=== PATIENT | male | born 1940 | race Caucasian/White ===

== ENCOUNTER 2020-03-06 12:33 | Emergency (ER) | payer MEDICARE, SELFPAY ==
[2020-03-06 12:50] VITALS: BP 120/83; PULSE 73; RESP 20; TEMP 36.6; O2SAT 100
--- NOTE | 2020-03-06 12:52 | ED.WOUNDLAC ---
HPI - Wound/Laceration General Chief Complaint: Wound/Laceration Stated Complaint: Laceration forehead Time Seen by Provider: 03/06/20 12:40 Source: patient Mode of arrival: ambulatory Limitations: no limitations History of Present Illness HPI narrative: Emil Gonzalez is a 79 yo male with a PMH of aortic stenosis, ICD placement, a fib, BPH, hypertension, high cholesterol, who comes to express care with a elliptical laceration 1.5 cm in length that occurred 2 to 3 days ago(either Tuesday or Tuesday), when moving a plastic trash can and got hit in the forehead by the trash can lid. The elliptical area i has old blood still in place. Her call doctor who told him to come to express care patient is concerned about infection are scarring Patient is on both Coumadin and aspirin Related Data Home Medications Medication Instructions Recorded Confirmed aspirin 81 mg tablet,delayed 81 mg PO DAILY 07/13/19 03/06/20 release atorvastatin 80 mg tablet 80 mg PO DAILY 07/13/19 03/06/20 bumetanide 1 mg tablet 2 mg PO DAILY 07/13/19 03/06/20 multivitamin 1 tablet PO DAILY 07/13/19 03/06/20 tamsulosin 0.4 mg capsule 0.4 mg PO DAILY 07/13/19 03/06/20 warfarin 3 mg tablet 3 mg PO DAILY 07/13/19 03/06/20 carvedilol 12.5 mg tablet 25 mg PO BID tablet 01/21/20 03/06/20 Allergies Allergy/AdvReac Type Severity Reaction Status Date / Time No Known Allergies Allergy Verified 01/21/20 12:58 Review of Systems Review of Systems: Narrative: CONSTITUTIONAL: Denies fever, chills, sweats. EYES: Denies visual changes, redness, discharge. ENT: Denies rhinorrhea, congestion, sore throat, otalgia. CARDIOVASCULAR: Denies chest pain, palpitations, edema. RESPIRATORY: Denies dyspnea, wheezing, cough GASTROINTESTINAL: Denies abdominal pain, nausea, vomiting, diarrhea. GENITOURINARY: Denies dysuria, hematuria, abnormal discharge SKIN: Denies rash or itching. Elliptical superficial laceration to right side upper forehead, occurred 2 to 3 days ago NEUROLOGIC: Denies numbness, or focal weakness. PSYCHIATRIC: Denies anxiety or depression. [facility] Past Medical History Medical History Actinic keratoses Artificial pacemaker Atrial fibrillation and flutter CAD in [place] artery Carcinoma Cardiac defibrillator in place Hammer toes of both feet History of carcinoma in situ of skin Hyperlipidemia Hypertension Pes cavus Plantar fasciitis Squamous cell carcinoma in situ Wears glasses reading Surgical History Surgical History Aortic valve replaced Family History Family History Father Family history of cardiovascular disease Other Malignant neoplasm Social History Social History Smoking status: Former smoker Second hand tobacco smoke exposure: No Alcohol intake: never Substance use: never Substance use type: does not use Gender identity (if verbalized by the patient): Male Comments At time of signature, I agree with nursing past medical, surgical, social and family history. There is no relevant family history pertinent to the presenting complaint. Exam Narrative: Exam Narrative: GENERAL: This is a well-nourished, well-developed patient, in mild distress. HEAD: normocephalic, atraumatic. EYES: PERRL. Sclera clear/white. Vision is grossly intact. EARS: External ears normal, auditory canals clear and without drainage, TMs normal without perforation. Hearing grossly intact. NOSE: External nose normal without nasal discharge, nares without redness, no rhinorrhea. THROAT: Mucous membranes moist, posterior pharynx NECK: Neck supple, non-tender CARDIOVASCULAR: Regular rate and rhythm without murmurs, gallops, or rubs. RESPIRATORY: Clear to auscultation. Breath sounds equal bilaterally. No wheezes, rales, or rhonchi.
[2020-03-06] MEDS: TETANUS,DIPHTHERIA,AC PERTUSSIS ADULT (0.5 ML) BOOSTRIX IM (13:06)
== END 2020-03-06 13:14 | disposition home or self-care (01) ==
PROVIDERS: Emergency Provider Nurse Practitioner; PCP Family Medicine
DX: S01.01XA Laceration without foreign body of scalp, initial encounter (principal); W22.8XXA Striking against or struck by other objects, initial encounter; Z23 Encounter for immunization; Z87.891 Personal history of nicotine dependence; Z95.0 Presence of cardiac pacemaker; I25.10 Atherosclerotic heart disease of native coronary artery without angina pectoris; E78.5 Hyperlipidemia, unspecified; I10 Essential (primary) hypertension; Z95.2 Presence of prosthetic heart valve; I48.91 Unspecified atrial fibrillation
CPT/HCPCS: 90471; 90715; 99213; G0463

== ENCOUNTER 2020-05-07 08:52 | Inpatient (IN) | payer MEDICARE, SELFPAY ==
[2020-05-07] VITALS (20 sets, daily range): BP systolic 93–102; BP diastolic 61–69; PULSE 69–100; RESP 13–20; TEMP 36.3–36.6; O2SAT 78–100
--- NOTE | ~2020-05-07 | US_ITS ---
EXAMINATION: US renal BI DATE: 05/07/2020 16:04 INDICATION: Worsening renal failure TECHNIQUE: Multiple ultrasound grayscale images of the kidneys were obtained. COMPARISON: CT abdomen and pelvis dated 05/07/2020 FINDINGS: The right kidney measures 8.9 x 4.1 x 4.0 cm. The left kidney measures 10.0 x 5.3 x 4.7 cm. The kidne ys demonstrate normal echogenicity. There is no hydronephrosis in either kidney. No stones identifie d. There is a peripheral nodular filling defect at the base of the bladder, unclear whether arising f rom the bladder wall or from the deeper prostate. IMPRESSION: 1. Normal kidneys without hydronephrosis. 2. Nodular filling defect along the base of the bladder which could be related to benign prostatomega ly or malignancy either of bladder or prostate origin. Correlate with urinalysis and could consider c ystoscopy for further evaluation. Reviewed, dictated and finalized at location . [employer] INSTRUCTOR IN ECONOMICS IMPRESSION: 1. Normal kidneys without hydronephrosis. 2. Nodular filling defect along the base of the bladder which could be related to benign prostatomegaly or malignancy either of bladder or prostate origin. Co rrelate with urinalysis and could consider cystoscopy for further evaluation.
--- NOTE | ~2020-05-07 | CT_ITS ---
EXAMINATION: CT brain wo con DATE: 05/07/2020 10:17 INDICATION: Altered mental status. TECHNIQUE: Computed tomography (CT) of the head was performed without intravenous contrast. The mA wa s adjusted according to patient size. Iterative reconstruction technique was employed. The dose-lengt h product was 681.00 mGy-cm. COMPARISON: Head CT 09/25/18 FINDINGS: There is old infarct in right cerebellum. There is an old infarct in the right occipital lo be. There are old infarcts in the bilateral basal ganglia. There are scattered areas of low attenuati on in the cerebral white matter, which is within normal limits for the patient's age. There is no int racranial hemorrhage, acute infarction, or abnormal intracranial mass lesion. The ventricles are norm al in size. There is mild mucosal thickening in the paranasal sinuses. The orbits are normal. The mas toid air cells are normal. IMPRESSION: 1. Old infarcts in the bilateral basal ganglia, right occipital lobe, and right cerebellum. Reviewed, dictated and finalized at location A. ENT ACCESS
--- NOTE | ~2020-05-07 | XR_ITS ---
EXAMINATION: XR chest 2V EXAM DATE: 05/07/2020 10:27 INDICATION: Altered mental status. Cardiomegaly. Shortness of breath. TECHNIQUE: Frontal and lateral projections of the chest obtained and reviewed. Comparison is made to prior examination from 09/25/2018. FINDINGS: There is a dual lead pacemaker/AICD seen with leads projecting over the expected locations of the right atrial appendage and right ventricle. Sternotomy wires are present without findings to suggest sternal dehiscence. Cardiac valve replacement. There is cardiomegaly and pulmonary vascular congestion. No confluent consolidation, pneumothorax or pleural effusion suspected. Degenerative IMPRESSION: 1. Cardiomegaly, pulmonary vascular congestion. Reviewed, dictated and finalized at location B. OTIC ASSISTANT
--- NOTE | ~2020-05-07 | CT_ITS ---
EXAMINATION: CT abdomen pelvis wo con EXAM DATE: 05/07/2020 10:16 INDICATION: Transaminitis. Altered mental status. TECHNIQUE: Spiral CT of the abdomen and pelvis was performed without contrast. Axial, coronal and s agittal images were reviewed. The dose-length product (DLP) for this examination was 644.48 mGy-cm. The exposure was tailored according to patient size (auto mA exposure control), and iterative recons truction (ASIR) was used as additional dose reduction technique. There is no prior study for compari son. FINDINGS: Small amount of perihepatic ascites. Gallbladder is contracted with some pericystic ascites , nonspecific. No calcified cholelithiasis. Spleen, adrenal glands, pancreas are unremarkable. [place] bilateral nephrolithiasis. The prostate is unremarkable. The bladder is unremarkable. There i s no retroperitoneal or pelvic lymphadenopathy. There is moderate scattered arteriosclerotic diseas e. Right inguinal canal surgical changes. The appendix is normal. The stomach and small bowel are unremarkable. There is expected amount of c olonic stool. No free intraperitoneal gas. There is cardiomegaly and bilateral gynecomastia. The lung bases are unremarkable. There are no osteoblastic or osteolytic lesions identified. Small umbi lical fat-containing hernia. IMPRESSION: 1. Small amount of ascites including in the gallbladder fossa which is nonspecific. Contracted gallb ladder without calcified cholelithiasis. 2. Punctate bilateral nephrolithiasis. 3. Mild colonic diverticulosis. 4. Small umbilical hernia. 5. Cardiomegaly. Reviewed, dictated and finalized at location B. ITUTIONAL NUTRITION CONSULTANT IMPRESSION: 1. Small amount of ascites including in the gallbladder fossa which is nonspec ific. Contracted gallbladder without calcified cholelithiasis. 2. Punctate bilateral nephrolithiasis. 3. Mild colonic diverticulosis. 4. Small umbilical hernia. 5. Cardiomegaly.
--- NOTE | ~2020-05-07 | XR_ITS ---
EXAMINATION: XR chest 1V portable DATE: 05/09/2020 15:26 INDICATION: Shortness of breath. TECHNIQUE: A single frontal view of the chest was obtained. COMPARISON: Chest 2 views 05/07/2020, CT abdomen and pelvis 05/07/2020 FINDINGS: The patient is rotated to his left. There are airspace opacities in left lower lung zone. N o pleural effusion or pneumothorax. Cardiomegaly is noted. There are changes of heart valve replaceme nt and likely coronary artery bypass grafting. There is a left chest wall pacer with leads in the rig ht atrium and right ventricle. IMPRESSION: 1. Worsened airspace opacities in left lower lung zone, consistent with atelectasis or less likely pn eumonia. 2. Cardiomegaly. Reviewed, dictated and finalized at location A. BUILDER IMPRESSION: 1. Worsened airspace opacities in left lower lung zone, consistent with atelect asis or less likely pneumonia. 2. Cardiomegaly.
--- NOTE | ~2020-05-07 | US_ITS ---
EXAMINATION: US right upper quadrant EXAM DATE: 05/07/2020 12:50 INDICATION: Transaminitis. TECHNIQUE: Multiple grayscale and Doppler images of the abdomen right upper quadrant were obtained (b y a technologist who performed the scan) and subsequently reviewed. Comparison is made to prior exami nation from 03/24/2011. FINDINGS: The pancreatic head and body are normal in appearance. The pancreatic tail is not visualized. The l iver has normal echogenicity and contour. There are no focal liver lesions identified. There is no evidence of intrahepatic biliary duct dilation. There is abnormal pulsatile bidirectional portal venous flow indicating probability of portal hyperte nsion. No evidence of portal venous thrombosis. No right-sided hydronephrosis. Common bile duct measures 3 mm, which is normal. The gallbladder is mildly distended, wall is moderat henry thickened at about 6 mm. No sonographic evidence of pericholecystic fluid. There is no cholelit hiasis. Technologist performing exam reports patient did not demonstrate sonographic Lugo's sign. Please note that this sign is less reliable in patients who have received pain medication. IMPRESSION: 1. Bidirectional portal venous flow suggesting portal hypertension and therefore underlying cirrhosi s. 2. Nonspecific gallbladder wall thickening, only mildly distended gallbladder without stones. Reviewed, dictated and finalized at location B. H SERVICES LIBRARIAN IMPRESSION: 1. Bidirectional portal venous flow suggesting portal hypertension and therefo re underlying cirrhosis. 2. Nonspecific gallbladder wall thickening, only mildly distended gallbladder without stones.
--- NOTE | 2020-05-07 09:00 | ECG_ITS ---
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
--- NOTE | 2020-05-07 09:28 | ED.AMS ---
HPI - Altered Mental Status General Chief Complaint: Altered Mental Status Stated Complaint: altered mental status Time Seen by Provider: 05/07/20 08:54 History of Present Illness HPI narrative: Patient is a 79-year-old male who presents the ER with altered mental status. 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 Patient missed his appointment yesterday and they contacted come in today. While he was being evaluated in the office he continued to fall asleep and not make much sense. Patient reports that he just feels out of it. In the ER he is demonstrating the same behavior. He is poorly interacting likely due to his lethargy. He begins to speak with clear sentences and then slowly begins to mumble and fall asleep. He does not open his eyes. He has no additional complaints other than just feeling out of it. Related Data Home Medications Medication Instructions Recorded Confirmed aspirin 81 mg tablet,delayed 81 mg PO DAILY 07/13/19 03/06/20 release atorvastatin 80 mg tablet 80 mg PO DAILY 07/13/19 03/06/20 bumetanide 1 mg tablet 2 mg PO DAILY 07/13/19 03/06/20 multivitamin 1 tablet PO DAILY 07/13/19 03/06/20 tamsulosin 0.4 mg capsule 0.4 mg PO DAILY 07/13/19 03/06/20 warfarin 3 mg tablet 3 mg PO DAILY 07/13/19 03/06/20 carvedilol 25 mg BID 05/07/20 spironolactone 25 mg DAILY 05/07/20 Allergies Allergy/AdvReac Type Severity Reaction Status Date / Time No Known Allergies Allergy Verified 05/07/20 16:09 Review of Systems Review of Systems: ROS unobtainable: Yes unobtainable due to medical condition [facility] Past Medical History Medical History (Updated 05/07/20 @ 16:11 by Floyd Bruce MD) Actinic keratoses Artificial pacemaker Atrial fibrillation and flutter BPH (benign prostatic hyperplasia) CAD in [place] artery Carcinoma Cardiac defibrillator in place CHF (congestive heart failure), NYHA class I CRF (chronic renal failure) stage III CVA (cerebral vascular accident) Old infarcts in the bilateral basal ganglia, right occipital lobe, 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 History of carcinoma in situ of skin Hyperlipidemia Hypertension Pes cavus Plantar fasciitis Skin cancer multiple areas removed from his face Squamous cell carcinoma in situ Wears glasses reading Surgical History Surgical History (Updated 05/07/20 @ 14:03 by Gertrude Joshua NP) AICD (automatic cardioverter/defibrillator) present Aortic valve replaced mechanical History of removal of pigmented skin lesion S/P CABG (coronary artery bypass graft) Family History Family History Father Family history of cardiovascular disease Mother Cancer Social History Social History (Updated 05/07/20 @ 14:08 by Gertrude Joshua NP) Social History: 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 He has 1 son who was Emil LOERA the 3rd. His son is his durable power pipeline inspector for healthcare. The patient is a full code. He is . Patient denies any tobacco, alcohol, marijuana or illicit drugs. He lives alone. Smoking status: Never smoker Second hand tobacco smoke exposure: No Alcohol intake: never Substance use: never Substance use type: does not use Living arrangements: alone Occupation/Education: occupation Additional occupation/education comments: [employer] Gender identity (if verbalized by the patient): Male Spiritual care concerns: No Exam Narrative: Exam Narrative: GENERAL: Chronically ill-appearing, well-nourished, and in no acute distress. HEAD: Normocephalic, atraumatic. EYES: PERRLA and EOMI. CHEST: Clear to auscultation. No respiratory distress. HEART: Irregular regular rate and rhythm. Normal peripheral pulses. ABDOMEN: Soft, nontender, nondistended. EXTREMITIES: Normal range of motion. No edema. SKIN: Warm, dry, no rash. NEURO: Alert and oriented x3. Course Course Emergency Course: Informed of r
[2020-05-07] MEDS: SODIUM CHLORIDE 0.9% IV 1,000 ML 999 ML IV CONT ×2 (09:35→11:29)
[2020-05-07 09:37] LABS: Alveolar/Arterial O2 Gradient 26.9 mmHg; Base Excess ABG 1.3 mEq/l (+/-2.0); Device ROOM AIR; Fractional Inspired Oxygen 21 %; HCO3 ABG 24.9 mEq/l (22.0-26.0); Modified Allen's Test Pass; Oxygen Content ABG 16.7 %vol (16.0-22.0); Oxygen Saturation ABG 96.4 % (95.0-100.0); Oxyhemoglobin 94.1 % THb (90.0-100.0); PO2 ABG 79.7 mmHg (80.0-100.0); Site Drawn LEFT RADIAL; Total Hemoglobin 12.6 g/dL (12.0-18.0); pH ABG 7.458 (7.350-7.450)
[2020-05-07 09:47] LABS: INR 3.8; Partial Thromboplastin Time 41.6 SECONDS (22.3-36.8); Prothrombin Time 37.9 Seconds (11.1-14.7)
[2020-05-07 09:48] LABS: Ammonia < 9 umol/L (9-30); Ethanol < 10 mg/dL (<10)
[2020-05-07 09:49] LABS: Alanine Aminotransferase 334 U/L (4-50); Albumin Level 3.4 g/dL (3.5-5.1); Alkaline Phosphatase 109 U/L (38-126); Anion Gap 9 mmol/L (8-16); Aspartate Amino Transferase 348 U/L (17-59); Bilirubin,Total 0.9 mg/dL (0.2-1.3); Blood Urea Nitrogen 72 mg/dL (9-20); Calcium 8.5 mg/dL (8.4-10.2); Carbon Dioxide 29 mmol/L (22-30); Chloride 95 mmol/L (98-107); Estimated CRCL calculation 18 ml/min; Estimated Glomerular Filt Rate 25; Glucose 125 mg/dL (75-110); Potassium 3.6 mmol/L (3.4-5.0); Sodium 133 mmol/L (137-145)
[2020-05-07 10:19] LABS: Add Urine Microscopic? NO; Appearance Urine Clear (Clear); Bilirubin Urine Negative (Negative); Blood Urine Negative (Negative); Color Urine Yellow (Yellow); Glucose Urine UA Negative (Negative); Ketones Urine Negative (Negative); Leukocyte Esterase Ur Negative LEU/UL (Negative); Mucus Urine Rare /lpf; Nitrate Urine Negative (Negative); Protein Urine Negative (Negative); Specific Grav Ur 1.013 (1.001-1.035); Urobilinogen Urine Negative mg/dL (<2.0); WBC Urine 0-3 /hpf
[2020-05-07 10:58] LABS: Basophils Percent Auto 0.2 % (0.2-1.2); Eosinophils Percent Auto 0.3 % (0-4.4); Hematocrit 35.7 % (42.0-52.0); Hemoglobin 11.5 g/dL (14.0-18.0); Immature Granulocyte Absolute 0.02 K/mm3 (0.00-0.031); Immature Granulocyte Percent A 0.3 % (0-0.5); Lymphocytes Absolute Auto 0.58 K/mm3 (0.9-3.2); Mean Corpuscular HGB Conc 32.2 g/dl (32-36); Mean Corpuscular Volume 89.9 fl (80-100); Mean Platelet Volume 9.9 fl (7.4-10.4); Monocytes Absolute Auto 0.9 K/mm3 (0.1-0.6); Monocytes Percent Auto 15.2 % (2.6-8.5); Neutrophils Absolute Auto 4.3 K/mm3 (1.3-6.7); Platelet Count Result 222 k/mm3 (150-375); Red Blood Count 3.97 M/mm3 (4.6-6.20); Red Cell Distribution Width 13.9 % (11.5-14.5); White Blood Count 5.8 K/mm3 (4.5-10.0)
--- NOTE | 2020-05-07 11:10 | PC.NURSE ---
received report from Lavonne/Yue HOWE. patient here with lethargy and weakness. see notes. IVF done. waiting for all test results. probable admission.
--- NOTE | 2020-05-07 12:15 | PC.NURSE ---
patient to ultrasound via stretcher.
--- NOTE | 2020-05-07 12:55 | PC.NURSE ---
back from ultrasound. resting on stretcher. awakens briefly. no change in patient's condition since arrival. SBAR completed. faxed and tubed to floor.
--- NOTE | 2020-05-07 13:10 | PC.NURSE ---
attempted to call report to 3rd floor. RN unavailable. will call back per nursing secretary.
--- NOTE | 2020-05-07 13:25 | PC.NURSE ---
hospitalist at bedside. attempting to call report again.
--- NOTE | 2020-05-07 13:41 | PC.NURSE ---
report given to Senait HOWE. will transfer patient to [facility] via stretcher.
--- NOTE | 2020-05-07 13:43 | PM.IMHP ---
H&P: HPI History of Present Illness Date/Time: 05/07/20 13:43 Chief complaint: marian,transaminitis,covid pui Narrative: Emil Gonzalez Jr. is a 79 year old male Who has a history of chronic renal failure stage 3 and follows with the nephrology group ear. The patient also has atrial fibrillation, congestive heart failure and aortic valve replacement. The patient missed his cardiac appointment yesterday and came to the cardiology office today and was falling asleep and was not making much sense. The patient said he felt out of it. He cannot recall what type of pacemaker he has Or when he had and interrogated last. initially the patient was not answering my questions without a came back to see him later and he was answering some of my questions. But he is just so lethargic use falling asleep in the middle a sentence. Sometimes his words are Mumbled. Patient's creatinine was noted to be 2.5 today it looks like his baseline somewhere between 1.5 And 1.7. patient is a is his 348 and ALT 334. Patient's COVID swab is pending. Patient's abdominal ultrasound was read as bidirectional portal venous flow suggesting portal hypertension in the for underlying cirrhosis. Nonspecific gallbladder wall thickening only mildly distended gallbladder without stones. Chest x-ray was read as cardiomegaly pulmonary vascular congestion. CT the head old infarcts in the bilateral basal ganglia right occipital wound and right cerebellum. The patient tells me that he just felt very fatigued. The patient was started on IV fluids. Patient is being admitted into observation status on the date of service 05/07/2020. Review of Systems Review of Systems: All systems reviewed & are unremarkable except as noted in HPI and below Constitutional: Constitutional: Reports as per HPI and Reports no additional constitutional complaints Eyes: Eyes: Reports as per HPI and Reports no additional eye complaints ENT: Reports system reviewed and no additional complaints, except as documented and Reports Normal hearing present Cardiovascular: Cardiovascular: Reports no additional cardiovascular complaints Respiratory: Respiratory: Reports no additional respiratory complaints and Reports no additional respiratory complaints Gastrointestinal: Gastrointestinal: Reports as per HPI and Reports no additional gastrointestinal complaints Musculoskeletal: Musculoskeletal: Reports no additional musculoskeletal complaints Integumentary/Breasts: Skin/Breast: Reports system reviewed and no additional complaints, except as docu and Reports as per HPI Neurologic: Reports system reviewed and no additional complaints, except as documented, Reports as per HPI and Reports Normal hearing present Psychiatric: Psychiatric: Reports no additional psychiatric complaints and Reports as per HPI Endocrine: Endocrine: Reports no additional endocrine complaints Hematologic/Lymphatic: Hematologic/Lymphatic: Reports no additional hematologic/lymphatic complaints Allergic/Immunologic: Allergic/Immunologic: Reports no additional allergic/immunologic complaints [facility] Past Medical History Medical History (Updated 05/07/20 @ 14:24 by Gertrude Joshua NP) Actinic keratoses Artificial pacemaker Atrial fibrillation and flutter BPH (benign prostatic hyperplasia) CAD in [place] artery Carcinoma Cardiac defibrillator in place CHF (congestive heart failure), NYHA class I CRF (chronic renal failure) stage III CVA (cerebral vascular accident) Old infarcts in the bilateral basal ganglia, right occipital lobe, 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 History of carcinoma in situ of skin Hyperlipidemia Hypertension Pes cavus Plantar fasciitis Skin cancer multiple areas removed from his face Squamous cell carcinoma in situ Wears glasses reading Surgical History Surgical History (Updated 05/07/20 @ 14:03 by Gertrude Joshua NP) AICD (automatic cardioverter/defibrillator) present Aortic valve
--- NOTE | 2020-05-07 15:20 | WPDGICN ---
Assessment and Plan Assessment and plan (1) Elevated liver enzymes: Code(s): R74.8 - Abnormal levels of other serum enzymes Status: Acute Assessment and Plan: Elevated serum transaminases are noted in the 300 range. Previous LFTs in our records are unremarkable. Etiology of this remains unclear. At 1st evaluation I am suspicious this may be related to congestive heart failure and passive congestion of the liver. CT scan and ultrasound of the right upper quadrant are relatively unremarkable. Plan is to check hepatitis serologies as well as additional lab testing. LFTs should be monitored as his pulmonary vascular congestion is treated. Pulmonary can't vascular congestion identified on chest x-ray suggestive of congestive heart failure. Patient's ammonia level is normal suggesting is confusion may not be coming from liver disease. (2) CHF (congestive heart failure), NYHA class I: Code(s): I50.9 - Heart failure, unspecified Status: Acute (3) Atrial fibrillation and flutter: Code(s): I48.91 - Unspecified atrial fibrillation; I48.92 - Unspecified atrial flutter Status: Chronic (4) Artificial pacemaker: Code(s): Z95.0 - Presence of cardiac pacemaker Status: Acute (5) Confusion: Code(s): R41.0 - Disorientation, unspecified Status: Acute GI Consult Note Consult date/time: 05/07/20 15:20 HPI: Emil Gonzalez Jr. is a 79 year old male seen in evaluation at the request of the hospitalist service. I am asked to see patient for elevated LFTs. His past medical history is significant for chronic kidney disease followed by Nephrology. He has a history of atherosclerotic heart disease. Atrial fibrillation, congestive heart failure and aortic valve replacement. He is on chronic Coumadin anticoagulation. He apparently became confused and missed his cardiology appointment yesterday. He was told to come to the ER today and was found to be somewhat confused. LFTs were noted to be elevated. Patient is unable to give a significant history. Other than that just described. In the ER chest x-ray confirms pulmonary vascular congestion felt to be on the basis of his heart disease. LFTs predominantly serum transaminases were elevated in the ER. These were normal on previous testing Review of Systems Review of Systems: ROS unobtainable: Yes unobtainable due to mental status [facility] Past Medical History Medical History (Updated 05/07/20 @ 15:25 by Oren De Los Santos MD) Actinic keratoses Artificial pacemaker Atrial fibrillation and flutter BPH (benign prostatic hyperplasia) CAD in [place] artery Carcinoma Cardiac defibrillator in place CHF (congestive heart failure), NYHA class I CRF (chronic renal failure) stage III CVA (cerebral vascular accident) Old infarcts in the bilateral basal ganglia, right occipital lobe, 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 History of carcinoma in situ of skin Hyperlipidemia Hypertension Pes cavus Plantar fasciitis Skin cancer multiple areas removed from his face Squamous cell carcinoma in situ Wears glasses reading Surgical History Surgical History (Updated 05/07/20 @ 14:03 by Gertrude Joshua NP) AICD (automatic cardioverter/defibrillator) present Aortic valve replaced mechanical History of removal of pigmented skin lesion S/P CABG (coronary artery bypass graft) Family History Family History Father Family history of cardiovascular disease Mother Cancer Social History Social History (Updated 05/07/20 @ 14:08 by Gertrude Joshua NP) Social History: 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 He has 1 son who was Emil GONZALEZ the 3rd. His son is his durable power dynamics ax technical architect for healthcare. The patient is a full code. He is . Patient denies any tobacco, alcohol, marijuana or illicit drugs. He lives alone. Smoking status: Former smoker Second
[2020-05-07 15:29] LABS: INR 3.8; Prothrombin Time 37.7 Seconds (11.1-14.7)
[2020-05-07 15:30] LABS: Ammonia < 9 umol/L (9-30)
--- NOTE | 2020-05-07 15:43 | PC.NURSE ---
This patient, Emil Gonzalez Jr., was admitted to [facility] Surg Room 329-01 on 05/07/20 @ 6464. Patient/family oriented to hospital policies and general routines including ID bracelet, bed and alarms, visiting hours, pain management, procedures, bathroom and other care routines, personal items, smoking policy, room service/diet, and visiting hours. Information on how to activate the Rapid Response Team has been discussed. Patient/Family are encouraged to report perceived risks to care and to ask questions if they do not understand what they are told or what they should do.
[2020-05-07] MEDS: SODIUM CHLORIDE 0.9% IV 1,000 ML 125 ML IV CONT (15:53)
--- NOTE | 2020-05-07 16:38 | PM.CNNEP ---
Assessment and Plan Assessment and plan (1) JENNIFER (acute kidney injury): Code(s): N17.9 - Acute kidney failure, unspecified Status: Acute Assessment and Plan: etiology not clear possible poor intake prior to admission(?) overdiuresis(?) check urine electrolytes and follow-up on renal ultrasound not opposed to trial of IVFs but watch volume status closely given his cardiomyopathy follow repeat labs and UOP (2) Chronic renal failure, stage 3b: Code(s): N18.32 - Chronic kidney disease, stage 3b Status: Acute Assessment and Plan: baseline creatinine ~ 1.4 - 1.7mg/dl in the last few years due to cardiomyopathy and necessity of diuretics to keep edema/volume status stable (variation of cardiorenal syndrome) outpatient serological evaluation wass negative (3) Altered mental status: Code(s): R41.82 - Altered mental status, unspecified Status: Acute Assessment and Plan: etiology? due to liver issues or worsening renal failure drug reaction? CT of head negative noted plan for MRI of brain to r/o CVA follow mental status (4) Elevated liver enzymes: Code(s): R74.8 - Abnormal levels of other serum enzymes Status: Acute Assessment and Plan: as noted by admission labs Gastroenterology following with recommendations/testing noted will follow nicol (5) Ischemic cardiomyopathy: Code(s): I25.5 - Ischemic cardiomyopathy Status: Acute Assessment and Plan: last EF noted to be ~ 30% follow volume status closely repeat Echo needed given #2 (?) Will continue to follow. History of Present Illness Reason for Consult Consult date: 05/07/20 Reason for consult: acute renal failure (on chronic kidney disease) Chief Complaint Chief complaint: jennifer,transaminitis,covid pui History of Present Illness Narrative: Almost all the information I have obtained is from review of the electronic medical record as the patient is unable to provide me with any significant/meaningful history as to the events that led to his presentation to the hospital due to his confusion The patient is a 79-year-old male with an extensive past medical history as outlined below who presented to [facility] Emergency room for further evaluation of altered mental status. Apparently, the patient was seen at his retail client solutions consultant's office earlier today for routine follow-up of his cardiac issues. However, it was noted during that office appointment that the patient was somewhat lethargic and would fall asleep in mid conversation. Upon further questioning, even the patient admitted that he was somewhat out of it as well.For these reasons, he was sent to the ER for further evaluation. Workup and evaluation in the emergency room demonstrated the patient to be hemodynamically stable but it seemed quite clear that his mental status was not at baseline. He is normally alert oriented x3 but he was quite lethargic and had difficulty answering questions when they were posed to him. Further testing demonstrated that his BUN and creatinine were low bit higher than baseline and his liver function tests were quite abnormal as well. Imaging studies including a CT scan of his head as well as a CT scan of his abdomen pelvis were negative for any type of acute intracranial pathology and only showed old/chronic findings. Given his complex medical history as well as the unresolved mental status issues, he was admitted the hospital for further evaluation and therapy. Since his admission, he has been seen in consultation by Gastroenterology with recommendations and further testing noted. Renal consultation was requested due to his acute kidney injury on top of his baseline kidney disease. The patient is quite familiar to me as I take care of his chronic kidney disease as an outpatient. He normally has a baseline creatinine around 1.4-1.7 mg/dL in the last several years thought to b
[2020-05-07 17:41] LABS: Hepatitis B Surface Antigen Negative (Negative)
[2020-05-07 17:46] LABS: HAV RESULT Negative (Negative); Hepatitis B Core IgM Result Negative (Negative)
[2020-05-07 17:58] LABS: Hepatitis C Virus Antibody Negative (Negative)
[2020-05-07] MEDS: carvediloL 25 MG TABLET BY MOUTH (20:51)
[2020-05-07 21:14] LABS: SARS-CoV-2 RNA PCR Negative
[2020-05-08 06:00] VITALS: BP 107/74; PULSE 85; RESP 20; TEMP 36.5; O2SAT 98
[2020-05-08 07:07] LABS: Basophils Percent Auto 0.4 % (0.2-1.2); Eosinophils Absolute Auto 0.1 K/mm3 (0-0.3); Eosinophils Percent Auto 1.5 % (0-4.4); Hematocrit 34.7 % (42.0-52.0); Hemoglobin 11.5 g/dL (14.0-18.0); Immature Granulocyte Absolute 0.04 K/mm3 (0.00-0.031); Immature Granulocyte Percent A 0.7 % (0-0.5); Lymphocytes Absolute Auto 0.72 K/mm3 (0.9-3.2); Lymphocytes Percent Auto 13.1 % (18.3-44.2); Mean Corpuscular HGB Conc 33.1 g/dl (32-36); Mean Corpuscular Hemoglobin 29.6 pg (26-34); Mean Corpuscular Volume 89.2 fl (80-100); Monocytes Absolute Auto 0.9 K/mm3 (0.1-0.6); Monocytes Percent Auto 16.2 % (2.6-8.5); Neutrophils Absolute Auto 3.7 K/mm3 (1.3-6.7); Neutrophils Percent Auto 68.1 % (45.5-73.1); Platelet Count Result 190 k/mm3 (150-375); Red Blood Count 3.89 M/mm3 (4.6-6.20); White Blood Count 5.5 K/mm3 (4.5-10.0)
[2020-05-08 07:58] LABS: Alanine Aminotransferase 321 U/L (4-50); Albumin Level 2.7 g/dL (3.5-5.1); Alkaline Phosphatase 101 U/L (38-126); Anion Gap 6 mmol/L (8-16); Aspartate Amino Transferase 224 U/L (17-59); Bilirubin,Total 0.6 mg/dL (0.2-1.3); Blood Urea Nitrogen 51 mg/dL (9-20); CRP 1.8 mg/dL (<1.0); Calcium 7.8 mg/dL (8.4-10.2); Carbon Dioxide 25 mmol/L (22-30); Chloride 102 mmol/L (98-107); Estimated CRCL calculation 27 ml/min; Estimated Glomerular Filt Rate 39; Glucose 99 mg/dL (75-110); Lipase 122 U/L (23-300); Magnesium 2.4 mg/dL (1.6-2.3); Potassium 3.7 mmol/L (3.4-5.0); Sodium 133 mmol/L (137-145)
[2020-05-08 08:00] VITALS: O2SAT 94
[2020-05-08] MEDS: FOLIC ACID 1 MG TABLET PO (08:17)
[2020-05-08] MEDS: TAMSULOSIN HCL 0.4 MG CAPSULE PO (08:17)
[2020-05-08] MEDS: carvediloL 25 MG TABLET BY MOUTH (08:17)
[2020-05-08] MEDS: THIAMINE HCL 100 MG TABLET PO (08:18)
[2020-05-08] MEDS: ASPIRIN 81 MG ENTERIC TABLET PO (08:18)
[2020-05-08] MEDS: FLUTICASONE PROPIONATE 0.05% NA SPR 16 GM BTL (*BKC) 2 SPRAY NASAL (08:18)
[2020-05-08] MEDS: MULTIVITAMINS THERAPEUTIC TAB (*BKC) 1 TABLET PO (08:18)
[2020-05-08 10:28] LABS: Hepatitis B Surface Antigen Negative (Negative)
[2020-05-08 10:34] LABS: HAV RESULT Negative (Negative); Hepatitis B Core IgM Result Negative (Negative)
[2020-05-08 10:45] LABS: Hepatitis C Virus Antibody Negative (Negative)
[2020-05-08 13:25] LABS: Amphetamine Screen Urine Negative (Negative); Barbiturate Screen Urine Negative (Negative); Benzodiazepines Screen Urine Negative (Negative); Cannabinoid Screen Urine Negative (Negative); Cocaine Screen Urine Negative (Negative); Methadone Screen Urine Negative (Negative); Opiate Screen Urine Negative (Negative); Phencyclidine Screen Urine Negative (Negative)
[2020-05-08 13:28] LABS: Add Urine Microscopic? YES; Appearance Urine Clear (Clear); Bacteria Urine Trace /hpf; Bilirubin Urine Negative (Negative); Blood Urine Negative (Negative); Color Urine Yellow (Yellow); Glucose Urine UA Negative (Negative); Ketones Urine Negative (Negative); Leukocyte Esterase Ur Trace LEU/UL (Negative); Nitrate Urine Negative (Negative); Protein Urine Negative (Negative); RBC Urine 0-2 /hpf (0-2); Specific Grav Ur 1.015 (1.001-1.035); Urobilinogen Urine Negative mg/dL (<2.0)
[2020-05-08 13:48] LABS: Creatinine Urine 103.7 mg/dL; Total Protein Urine Random 12 mg/dL
[2020-05-08 14:00] VITALS: BP 105/68; PULSE 92; RESP 16; TEMP 36.4; O2SAT 98
[2020-05-08 14:01] LABS: Creatinine Urine 103.9 mg/dL
[2020-05-08 14:05] LABS: Sodium Urine Random 8 meq/L
--- NOTE | 2020-05-08 14:13 | PM.IMPN ---
Progress Note: A&P Assessment and Plan (1) Lethargy: Code(s): R53.83 - Other fatigue Status: Acute Assessment and Plan: -patient kept closing his eyes during interview, having difficulty organizing his thoughts, slurred speech -his behaviors are less likely stroke and more like drug toxicity or psychiatric in nature, will rule out metabolic processes -UDS negative, I suspect he appears that he may have taken some substance, only home medication of the sedating is zolpidem -continue other home meds -consulting Neurology for altered mental status -renal function back to baseline, ammonia negative -GI and nephrology are also following case (2) CRF (chronic renal failure): Qualifiers: Chronic kidney disease stage: stage 3 (moderate) Chronic kidney disease stage 3 subtype: stage 3b (GFR 30-44) Qualified Code(s): N18.32 - Chronic kidney disease, stage 3b Code(s): N18.9 - Chronic kidney disease, unspecified Status: Chronic Assessment and Plan: CKD stage III. His baseline creatinine is typically between 1.5 and 1.7. Creatinine down to baseline. Renal ultrasound ordered: Nodular filling defect at base of bladder (3) Elevated liver enzymes: Code(s): R74.8 - Abnormal levels of other serum enzymes Status: Acute Assessment and Plan: -GI consult -right upper quadrant ultrasound complete, hepatitis panel negative -will trend transaminitis, there is a possibility patient took some drugs that we do not know of which is causing transaminitis and altered mental status (4) Atrial fibrillation and flutter: Code(s): I48.91 - Unspecified atrial fibrillation; I48.92 - Unspecified atrial flutter Status: Chronic Assessment and Plan: -continue home Coumadin for anticoagulation -continue Coreg for rate control -aortic valve replacement (5) Hypertension: Qualifiers: Hypertension type: essential hypertension Qualified Code(s): I10 - Essential (primary) hypertension Code(s): I10 - Essential (primary) hypertension Status: Chronic Assessment and Plan: Continue with Coreg if blood pressure is stable. (6) Hyperlipidemia: Qualifiers: Hyperlipidemia type: mixed hyperlipidemia Qualified Code(s): E78.2 - Mixed hyperlipidemia Code(s): E78.5 - Hyperlipidemia, unspecified Status: Chronic Assessment and Plan: Holding statin with elevated LFTs (7) Cardiac defibrillator in place: Code(s): Z95.810 - Presence of automatic (implantable) cardiac defibrillator Status: Acute Assessment and Plan: -Interrogate his AICD Additional Plan Diet: Cardiac Code status: Full code DVT prophylaxis: On warfarin Disposition: Inpatient, pending clinical course Subjective Date/time seen: 05/08/20 14:13 Patient examined. He is very somnolent, having difficulty keeping his eyes open, he is having difficulty coming up with names and words and has disorganized thought process. Is unclear why his LFTs are elevated. Lab work otherwise is quite unremarkable. UDS negative. He does have zolpidem listed as home med however there is no other medication that would cause this altered mental status. Patient denies fever, chills, nausea, vomiting, diarrhea, lightheadedness, dizziness, chest pain. Consulting Neurology for assistance. Review of Systems Review of Systems: All systems reviewed & are unremarkable except as noted in HPI and below Exam Narrative: Exam Narrative: - GENERAL: Elderly man clearly confused, nonlabored respiration - EYES: Anicteric, having difficulty keeping his eyes open - HENT: Moist mucous membranes. - LUNGS: Clear to auscultation bilaterally, no wheezing, rhonchi, or rales. - CARDIOVASCULAR: Regular rate and rhythm. No murmur. No JVD. - ABDOMEN: Soft, non-tender and non-distended. No palpable masses. - EXTREMITIES: No edema. Peripheral pulses 2+. Non-tender. - NEUROLOGIC: Obvious focal defi
--- NOTE | 2020-05-08 16:58 | P.PNNP_ITS ---
Progress Note: A&P Assessment and Plan (1) JENNIFER (acute kidney injury): Code(s): N17.9 - Acute kidney failure, unspecified Status: Acute Assessment and Plan: * back to baseline - etiology not clear * possible poor intake prior to admission(?) * overdiuresis(?) - urine lytes consistent with prerenal azotemia (but that is more likely a reflection of his cardiorenal syndrome) - renal ultrasound okay except for nodular filling defect along the base of the bladder * IVFs on hold now since creatinine back to baseline * follow repeat labs and UOP (2) Chronic renal failure, stage 3b: Code(s): N18.32 - Chronic kidney disease, stage 3b Status: Acute Assessment and Plan: * baseline creatinine ~ 1.4 - 1.7mg/dl in the last few years * due to cardiomyopathy and necessity of diuretics to keep edema/volume status stable (variation of cardiorenal syndrome) * outpatient serological evaluation was negative (3) Altered mental status: Code(s): R41.82 - Altered mental status, unspecified Status: Acute Assessment and Plan: * etiology? * due to liver issues? * drug reaction? * CT of head negative * noted plan for MRI of brain to r/o CVA * Neurology consulted * follow mental status (4) Elevated liver enzymes: Code(s): R74.8 - Abnormal levels of other serum enzymes Status: Acute Assessment and Plan: * as noted by admission labs * Gastroenterology following with recommendations/testing noted * will follow nicol (5) Ischemic cardiomyopathy: Code(s): I25.5 - Ischemic cardiomyopathy Status: Acute Assessment and Plan: * last EF noted to be ~ 30% * follow volume status closely * repeat Echo needed given #3 (?) Will continue to follow. Subjective Date/time seen: 05/08/20 16:58 Patient still appears lethargic and somnolent much as he was yesterday when I saw him; when he does start taking, it seems clear he is having trouble saying what he wants to say; no other acute events overnight or earlier tghis AM. To lerated IVFs overnight without any issues with his breathing. Exam Narrative: Exam Narrative: General: Elderly male in NAD but confused Heart: normal S1 and S2; no rub Lungs: clear to auscultation Abdomen: soft, nontender, nondistended, positive bowel sounds Extremities: no cyanosis or clubbing; no edema Skin: warm and dry Objective Data Vital Signs Vital Signs: Vital Signs Temp Pulse Resp BP Pulse Ox 05/08/20 14:00 36.4 C 92 16 105/68 98 05/08/20 08:00 94 05/08/20 06:00 36.5 C 85 20 107/74 98 05/07/20 20:51 72 05/07/20 20:00 36.4 C L 73 18 99/61 L 98 Intake/Output Intake/Output: Intake & Output 05/05/20 05/06/20 05/07/20 05/08/20 23:59 23:59 23:59 23:59 Intake Total 2360 1840 Output Total 400 400 Balance 1960 1440 Meds/Results Medications: Active Medications Generic Name Dose Route Start Last Admin Trade Name Freq PRN Reason Stop Dose Admin Acetaminophen 650 mg 05/07/20 12:08 Acetaminophen 325 Mg Tablet PO Q4H PRN Mild Pain (1-3) or Fever Hydrocodone Bitart/Acetaminophen 1 tab 05/07/20 12:08 Hydrocodone/Acetaminophen (*Crx) 5-325 Mg Tablet PO
--- NOTE | 2020-05-08 16:58 | PM.PNNEP ---
Progress Note: A&P Assessment and Plan (1) JENNIFER (acute kidney injury): Code(s): N17.9 - Acute kidney failure, unspecified Status: Acute Assessment and Plan: back to baseline - etiology not clear possible poor intake prior to admission(?) overdiuresis(?) - urine lytes consistent with prerenal azotemia (but that is more likely a reflection of his cardiorenal syndrome) - renal ultrasound okay except for nodular filling defect along the base of the bladder IVFs on hold now since creatinine back to baseline follow repeat labs and UOP (2) Chronic renal failure, stage 3b: Code(s): N18.32 - Chronic kidney disease, stage 3b Status: Acute Assessment and Plan: baseline creatinine ~ 1.4 - 1.7mg/dl in the last few years due to cardiomyopathy and necessity of diuretics to keep edema/volume status stable (variation of cardiorenal syndrome) outpatient serological evaluation was negative (3) Altered mental status: Code(s): R41.82 - Altered mental status, unspecified Status: Acute Assessment and Plan: etiology? due to liver issues? drug reaction? CT of head negative noted plan for MRI of brain to r/o CVA Neurology consulted follow mental status (4) Elevated liver enzymes: Code(s): R74.8 - Abnormal levels of other serum enzymes Status: Acute Assessment and Plan: as noted by admission labs Gastroenterology following with recommendations/testing noted will follow nicol (5) Ischemic cardiomyopathy: Code(s): I25.5 - Ischemic cardiomyopathy Status: Acute Assessment and Plan: last EF noted to be ~ 30% follow volume status closely repeat Echo needed given #3 (?) Will continue to follow. Subjective Date/time seen: 05/08/20 16:58 Patient still appears lethargic and somnolent much as he was yesterday when I saw him; when he does start taking, it seems clear he is having trouble saying what he wants to say; no other acute events overnight or earlier tghis AM. Tolerated IVFs overnight without any issues with his breathing. Exam Narrative: Exam Narrative: General: Elderly male in NAD but confused Heart: normal S1 and S2; no rub Lungs: clear to auscultation Abdomen: soft, nontender, nondistended, positive bowel sounds Extremities: no cyanosis or clubbing; no edema Skin: warm and dry Objective Data Vital Signs Vital Signs: Vital Signs Temp Pulse Resp BP Pulse Ox 05/08/20 14:00 36.4 C 92 16 105/68 98 05/08/20 08:00 94 05/08/20 06:00 36.5 C 85 20 107/74 98 05/07/20 20:51 72 05/07/20 20:00 36.4 C L 73 18 99/61 L 98 Intake/Output Intake/Output: Intake & Output 05/05/20 05/06/20 05/07/20 05/08/20 23:59 23:59 23:59 23:59 Intake Total 2360 1840 Output Total 400 400 Balance 1960 1440 Meds/Results Medications: Active Medications Generic Name Dose Route Start Last Admin Trade Name Freq PRN Reason Stop Dose Admin Acetaminophen 650 mg 05/07/20 12:08 Acetaminophen 325 Mg Tablet PO Q4H PRN Mild Pain (1-3) or Fever Hydrocodone Bitart/Acetaminophen 1 tab 05/07/20 12:08 Hydrocodone/Acetaminophen (*Crx) 5-325 Mg Tablet PO Q4H PRN Pain Rated 4-6 Aspirin 81 mg 05/08/20 09:00 05/08/20 08:18 Aspirin 81 Mg Enteric Tablet PO 81 mg DAILY MIGUEL ÁNGEL Administration Carvedilol 25 mg 05/07/20 21:00 05/08/20 08:17 Carvedilol 25 Mg Tablet BY MOUTH 25 mg Q12HR MIGUEL ÁNGEL Administration Fluticasone Propionate 2 spray 05/08/20 09:00 05/08/20 08:18 Fluticasone Propionate 0.05% Na Spr 16 Gm Btl (*Bkc) NASAL 2 spray DAILY MIGUEL ÁNGEL Administration Folic Acid 1 mg 05/08/20 09:00 05/08/20 08:17 Folic Acid 1 Mg Tablet PO 1 mg DAILY MIGUEL ÁNGEL Administration Sodium Chloride 1,000 mls @ 60 mls/hr 05/07/20 12:10 05/08/20 06:47 Normal Saline Iv IV CONT Infused .[id number] MIGUEL ÁNGEL Infusion Megha
[2020-05-08] MEDS: WARFARIN (*PBKC) 3 MG TABLET PO (17:48)
[2020-05-08] MEDS: MELATONIN 3 MG TABLET PO (20:37)
[2020-05-08 20:47] VITALS: PULSE 91
[2020-05-08 21:21] VITALS: BP 99/67; PULSE 91; RESP 18; TEMP 36.7; O2SAT 100
[2020-05-08 22:00] VITALS: BP 99/67; PULSE 91; RESP 18; TEMP 36.7; O2SAT 100
[2020-05-09] VITALS (9 sets, daily range): BP systolic 108–112; BP diastolic 76–78; PULSE 85–98; RESP 18–20; TEMP 36.2–37; O2SAT 96–100
[2020-05-09 06:55] LABS: Alanine Aminotransferase 289 U/L (4-50); Albumin Level 2.9 g/dL (3.5-5.1); Alkaline Phosphatase 102 U/L (38-126); Anion Gap 5 mmol/L (8-16); Aspartate Amino Transferase 157 U/L (17-59); Bilirubin,Total 0.7 mg/dL (0.2-1.3); Blood Urea Nitrogen 43 mg/dL (9-20); Carbon Dioxide 27 mmol/L (22-30); Chloride 100 mmol/L (98-107); Estimated CRCL calculation 28 ml/min; Estimated Glomerular Filt Rate 42; Glucose 99 mg/dL (75-110); Phosphorus 2.7 mg/dL (2.5-4.5); Potassium 3.9 mmol/L (3.4-5.0); Sodium 132 mmol/L (137-145)
[2020-05-09] MEDS: THIAMINE HCL 100 MG TABLET PO (08:24)
[2020-05-09] MEDS: ASPIRIN 81 MG ENTERIC TABLET PO (08:25)
[2020-05-09] MEDS: FLUTICASONE PROPIONATE 0.05% NA SPR 16 GM BTL (*BKC) 2 SPRAY NASAL (08:25)
[2020-05-09] MEDS: MULTIVITAMINS THERAPEUTIC TAB (*BKC) 1 TABLET PO (08:25)
[2020-05-09] MEDS: FOLIC ACID 1 MG TABLET PO (08:25)
[2020-05-09] MEDS: TAMSULOSIN HCL 0.4 MG CAPSULE PO (08:27)
[2020-05-09] MEDS: carvediloL 25 MG TABLET BY MOUTH ×2 (08:27→20:55)
--- NOTE | 2020-05-09 11:13 | WPDNEURCNPN ---
Assessment and Plan Assessment and plan (1) Ischemic cardiomyopathy: Code(s): I25.5 - Ischemic cardiomyopathy Status: Acute (2) Altered mental status: Code(s): R41.82 - Altered mental status, unspecified Status: Acute (3) Chronic renal failure, stage 3b: Code(s): N18.32 - Chronic kidney disease, stage 3b Status: Acute (4) JENNIFER (acute kidney injury): Code(s): N17.9 - Acute kidney failure, unspecified Status: Acute (5) Confusion: Code(s): R41.0 - Disorientation, unspecified Status: Acute (6) CHF (congestive heart failure), NYHA class I: Code(s): I50.9 - Heart failure, unspecified Status: Acute (7) Suspected COVID-19 virus infection: Code(s): Z20.828 - Contact with and (suspected) exposure to other viral communicable diseases Status: Acute Additional Plan at this stage is neurological status is stable we will obtain the Doppler study of the carotids but he is already tree CV in the anticoagulation therapy and the CT scan is negative Consult date: 05/09/20 Time Seen: 11:10 HPI: Emil Gonzalez Jr. is a 79 year old male admitted to the hospital with history of 1. Chronic renal failure stage 3 for which he follows with the Nephrology group in this hospital. 2. Atrial fibrillation 3. Congestive heart failure 4. Status post aortic valve replacement on the day of admission he missed the cardiology office follow-up appointment and was very sleepy not making sense initial interview he was not able to answer the questions appropriately and felt very sleepy and lethargic with mumbling of the words. His initial creatinine was documented 2.5 with elevated hepatic enzymes, abdominal ultrasound with bidirectional portal venous flow suggesting portal hypertension with underlying cirrhosis. Mildly distended gallbladder without stones. X-ray chest with cardiomegaly and pulmonary vascular congestion and CT scan of the head revealing old infarcts in the bilateral basal ganglia, right occipital and right cerebellum initial evaluation as mentioned before revealed BUN of 43 creatinine of 1.60 calcium of 8.0 AST 157 ALT 289 lb min only 2.9 normal UA, at present receiving aspirin carvedilol tamsulosin Coumadin. Ultrasound revealing nodular filling defect along the base of the bladder raising the possibility of the enlargement of the prostate or med Review of Systems Review of Systems: All systems reviewed & are unremarkable except as noted in HPI and below PMFSH Past Medical History Medical History Actinic keratoses Artificial pacemaker Atrial fibrillation and flutter BPH (benign prostatic hyperplasia) CAD in [place] artery Carcinoma Cardiac defibrillator in place CHF (congestive heart failure), NYHA class I CRF (chronic renal failure) stage III CVA (cerebral vascular accident) Old infarcts in the bilateral basal ganglia, right occipital lobe, 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 He has 1 son who was Emil GONZALEZ the 3rd. His son is his durable power civil attorney for healthcare. The patient is a full code. He is .
[2020-05-09 12:26] LABS: Prothrombin Time 31.5 Seconds (11.1-14.7)
--- NOTE | 2020-05-09 13:06 | PM.IMPN ---
Progress Note: A&P Assessment and Plan (1) Lethargy: Code(s): R53.83 - Other fatigue Status: Acute Assessment and Plan: -patient still has disorganized thoughts, speech is still slurred, is able to keep his eyes open now -workup so far is not showing any etiology for lethargy, with elevated LFTs and somnolence keeping eyes closed likely in medication or substance that caused altered mental status. I believe he is slowly improving, continue to watch with supportive care -neurology consult following, who believes is likely acute metabolic encephalopathy versus dementia -renal function back to baseline, ammonia negative -GI and nephrology are also following case (2) CRF (chronic renal failure): Qualifiers: Chronic kidney disease stage: stage 3 (moderate) Chronic kidney disease stage 3 subtype: stage 3b (GFR 30-44) Qualified Code(s): N18.32 - Chronic kidney disease, stage 3b Code(s): N18.9 - Chronic kidney disease, unspecified Status: Chronic Assessment and Plan: CKD stage III. His baseline creatinine is typically between 1.5 and 1.7. Creatinine down to baseline. (3) Elevated liver enzymes: Code(s): R74.8 - Abnormal levels of other serum enzymes Status: Acute Assessment and Plan: -GI consult -right upper quadrant ultrasound suggest portal hypertension and cirrhosis, nonspecific gallbladder wall thickening -will trend transaminitis, improving (4) Atrial fibrillation and flutter: Code(s): I48.91 - Unspecified atrial fibrillation; I48.92 - Unspecified atrial flutter Status: Chronic Assessment and Plan: -continue home Coumadin for anticoagulation -continue Coreg for rate control -aortic valve replacement (5) Hypertension: Qualifiers: Hypertension type: essential hypertension Qualified Code(s): I10 - Essential (primary) hypertension Code(s): I10 - Essential (primary) hypertension Status: Chronic Assessment and Plan: Continue with Coreg if blood pressure is stable. (6) Hyperlipidemia: Qualifiers: Hyperlipidemia type: mixed hyperlipidemia Qualified Code(s): E78.2 - Mixed hyperlipidemia Code(s): E78.5 - Hyperlipidemia, unspecified Status: Chronic Assessment and Plan: Holding statin with elevated LFTs (7) Cardiac defibrillator in place: Code(s): Z95.810 - Presence of automatic (implantable) cardiac defibrillator Status: Acute Assessment and Plan: AICD follows Dr. Kaufman (8) H/O aortic valve replacement: Code(s): Z95.2 - Presence of prosthetic heart valve Status: Acute Assessment and Plan: -#23 magna aortic valve replacement, which is bioprosthetic -continue warfarin for anticoagulation, goal INR 2-3 with bioprosthetic aortic valve replacement -will make sure it is not mechanical valve which would require 2.5-3.5. Additional Plan Diet: Cardiac Code status: Full code DVT prophylaxis: On warfarin, will check goal INR Disposition: Inpatient, pending clinical course Subjective Date/time seen: 05/09/20 13:06 Patient examined. He is still very confused and unable to collect his thoughts. Neurology has been consulted believes this is maybe acute metabolic encephalopathy versus dementia. INR 3.0. Patient has a magna number 23 aortic valve replacement, believe it may be a bioprosthetic aortic valve, goal maybe 2-3, will check to make sure that the goal is not 2.5-3.5. Continue warfarin for now. Other lab work looks within normal limits. Unclear etiology to his mentation change and elevated LFTs. Patient's concern was with dyspnea, he is breathing comfortably on room air, ABG did not show any significant hypoxia. echocardiogram done 10/17/2019 EF 30%, grade 1 diastolic dysfunction. Patient denies fever, chills, nausea, vomiting, diarrhea. He endorses dyspnea. Giving patient incentive spirometer. Chest x-ray 05/09/2020 showed possible atelectasi
--- NOTE | 2020-05-09 13:18 | P.PNNP_ITS ---
Progress Note: A&P Assessment and Plan (1) JENNIFER (acute kidney injury): Code(s): N17.9 - Acute kidney failure, unspecified Status: Acute Assessment and Plan: * back to baseline * etiology not clear * possible poor intake prior to admission(?) * overdiuresis(?) - urine lytes consistent with prerenal azotemia (but that is more likely a reflection of his cardiorenal syndrome/diminished EF) - renal ultrasound okay except for nodular filling defect along the base of the bladder * IVFs on hold now since creatinine back to baseline * follow repeat labs and UOP (2) Chronic renal failure, stage 3b: Code(s): N18.32 - Chronic kidney disease, stage 3b Status: Acute Assessment and Plan: * baseline creatinine ~ 1.4 - 1.7mg/dl in the last few years * due to cardiomyopathy and necessity of diuretics to keep edema/volume status stable (variation of cardiorenal syndrome) * outpatient serological evaluation was negative (3) Altered mental status: Code(s): R41.82 - Altered mental status, unspecified Status: Acute Assessment and Plan: * etiology? * due to liver issues? * drug reaction? * CT of head negative -- MRI needed(?) * Neurology following * follow mental status (4) Elevated liver enzymes: Code(s): R74.8 - Abnormal levels of other serum enzymes Status: Acute Assessment and Plan: * as noted by admission labs * Gastroenterology following with recommendations/testing noted * will follow trend (5) Ischemic cardiomyopathy: Code(s): I25.5 - Ischemic cardiomyopathy Status: Acute Assessment and Plan: * last EF noted to be ~ 30% * follow volume status closely * given respiratory complaints, check CXR and consider restart diuretics Will continue to follow. Subjective Date/time seen: 05/09/20 13:18 Mental status seems to be a bit better (similar to when I see him on office visits) but there are times where it seems he is word searching during my conversation today; main complaint is that he thinks his breathing is not good. Exam Narrative: Exam Narrative: General: Elderly male in NAD Heart: normal S1 and S2; no rub Lungs: clear anteriorly but decreased at bases Abdomen: soft, nontender, nondistended, positive bowel sounds Extremities: no cyanosis or clubbing; no edema Skin: warm and dry Objective Data Vital Signs Vital Signs: Vital Signs Temp Pulse Pulse Resp BP Pulse Ox 05/09/20 08:27 96 05/09/20 08:00 96 18 100 05/09/20 04:00 92 05/09/20 00:00 90 05/08/20 22:00 36.7 C 91 18 99/67 L 100 05/08/20 21:21 36.7 C 91 18 99/67 L 100 05/08/20 20:47 91 05/08/20 14:00 36.4 C 92 16 105/68 98 Intake/Output Intake/Output: Intake & Output 05/06/20 05/07/20 05/08/20 05/09/20 23:59 23:59 23:59 23:59 Intake Total 2360 2280 960 Output Total 400 600 300 Balance 1960 1680 660 Meds/Results Medications: Active Medications Generic Name Dose Route Start Last Admin Trade Name Freq PRN Reason Stop Dose Admin Acetaminophen 650 mg 05/07/20 12:08 Acetaminophen 325 Mg Tablet PO Q4H PRN Mild Pain (1-3) or Fever Hydrocodone Bit
--- NOTE | 2020-05-09 13:18 | PM.PNNEP ---
Progress Note: A&P Assessment and Plan (1) JENNIFER (acute kidney injury): Code(s): N17.9 - Acute kidney failure, unspecified Status: Acute Assessment and Plan: back to baseline etiology not clear possible poor intake prior to admission(?) overdiuresis(?) - urine lytes consistent with prerenal azotemia (but that is more likely a reflection of his cardiorenal syndrome/diminished EF) - renal ultrasound okay except for nodular filling defect along the base of the bladder IVFs on hold now since creatinine back to baseline follow repeat labs and UOP (2) Chronic renal failure, stage 3b: Code(s): N18.32 - Chronic kidney disease, stage 3b Status: Acute Assessment and Plan: baseline creatinine ~ 1.4 - 1.7mg/dl in the last few years due to cardiomyopathy and necessity of diuretics to keep edema/volume status stable (variation of cardiorenal syndrome) outpatient serological evaluation was negative (3) Altered mental status: Code(s): R41.82 - Altered mental status, unspecified Status: Acute Assessment and Plan: etiology? due to liver issues? drug reaction? CT of head negative -- MRI needed(?) Neurology following follow mental status (4) Elevated liver enzymes: Code(s): R74.8 - Abnormal levels of other serum enzymes Status: Acute Assessment and Plan: as noted by admission labs Gastroenterology following with recommendations/testing noted will follow trend (5) Ischemic cardiomyopathy: Code(s): I25.5 - Ischemic cardiomyopathy Status: Acute Assessment and Plan: last EF noted to be ~ 30% follow volume status closely given respiratory complaints, check CXR and consider restart diuretics Will continue to follow. Subjective Date/time seen: 05/09/20 13:18 Mental status seems to be a bit better (similar to when I see him on office visits) but there are times where it seems he is word searching during my conversation today; main complaint is that he thinks his breathing is not good. Exam Narrative: Exam Narrative: General: Elderly male in NAD Heart: normal S1 and S2; no rub Lungs: clear anteriorly but decreased at bases Abdomen: soft, nontender, nondistended, positive bowel sounds Extremities: no cyanosis or clubbing; no edema Skin: warm and dry Objective Data Vital Signs Vital Signs: Vital Signs Temp Pulse Pulse Resp BP Pulse Ox 05/09/20 08:27 96 05/09/20 08:00 96 18 100 05/09/20 04:00 92 05/09/20 00:00 90 05/08/20 22:00 36.7 C 91 18 99/67 L 100 05/08/20 21:21 36.7 C 91 18 99/67 L 100 05/08/20 20:47 91 05/08/20 14:00 36.4 C 92 16 105/68 98 Intake/Output Intake/Output: Intake & Output 05/06/20 05/07/20 05/08/20 05/09/20 23:59 23:59 23:59 23:59 Intake Total 2360 2280 960 Output Total 400 600 300 Balance 1960 1680 660 Meds/Results Medications: Active Medications Generic Name Dose Route Start Last Admin Trade Name Freq PRN Reason Stop Dose Admin Acetaminophen 650 mg 05/07/20 12:08 Acetaminophen 325 Mg Tablet PO Q4H PRN Mild Pain (1-3) or Fever Hydrocodone Bitart/Acetaminophen 1 tab 05/07/20 12:08 Hydrocodone/Acetaminophen (*Crx) 5-325 Mg Tablet PO Q4H PRN Pain Rated 4-6 Aspirin 81 mg 05/08/20 09:00 05/09/20 08:25 Aspirin 81 Mg Enteric Tablet PO 81 mg DAILY MIGUEL ÁNGEL Administration Carvedilol 25 mg 05/07/20 21:00 05/09/20 08:27 Carvedilol 25 Mg Tablet BY MOUTH 25 mg Q12HR MIGUEL ÁNGEL Administration Fluticasone Propionate 2 spray 05/08/20 09:00 05/09/20 08:25 Fluticasone Propionate 0.05% Na Spr 16 Gm Btl (*Bkc) NASAL 2 spray DAILY MIGUEL ÁNGEL Administration Folic Acid 1 mg 05/08/20 09:00 05/09/20 08:25 Folic Acid 1 Mg Tablet PO 1 mg DAILY MIGUEL ÁNGEL Administration Sodium Chloride 1,000 mls @ 60 mls/hr 05/07/20 12:10 05/09/20 07
[2020-05-09] MEDS: WARFARIN (*PBKC) 1.5 MG TABLET PO (17:33)
[2020-05-09] MEDS: MELATONIN 3 MG TABLET PO (20:55)
[2020-05-10] VITALS (9 sets, daily range): BP systolic 109–118; BP diastolic 61–84; PULSE 56–94; RESP 18–20; TEMP 36.2–36.6; O2SAT 95–98
[2020-05-10 06:47] LABS: Prothrombin Time 31.5 Seconds (11.1-14.7)
[2020-05-10 06:50] LABS: Anion Gap 5 mmol/L (8-16); Blood Urea Nitrogen 44 mg/dL (9-20); Calcium 8.2 mg/dL (8.4-10.2); Carbon Dioxide 27 mmol/L (22-30); Chloride 100 mmol/L (98-107); Estimated CRCL calculation 32 ml/min; Estimated Glomerular Filt Rate 49; Glucose 96 mg/dL (75-110); Phosphorus 3.3 mg/dL (2.5-4.5); Potassium 4.4 mmol/L (3.4-5.0); Sodium 132 mmol/L (137-145)
[2020-05-10] MEDS: ASPIRIN 81 MG ENTERIC TABLET PO (10:01)
[2020-05-10] MEDS: FOLIC ACID 1 MG TABLET PO (10:02)
[2020-05-10] MEDS: THIAMINE HCL 100 MG TABLET PO (10:02)
[2020-05-10] MEDS: TAMSULOSIN HCL 0.4 MG CAPSULE PO (10:02)
[2020-05-10] MEDS: FLUTICASONE PROPIONATE 0.05% NA SPR 16 GM BTL (*BKC) 2 SPRAY NASAL (10:02)
[2020-05-10] MEDS: MULTIVITAMINS THERAPEUTIC TAB (*BKC) 1 TABLET PO (10:02)
[2020-05-10] MEDS: carvediloL 25 MG TABLET BY MOUTH ×2 (10:03→19:56)
--- NOTE | 2020-05-10 11:28 | WPDNEUROPN ---
Progress Note: A&P Assessment and Plan (1) Chronic renal failure, stage 3b: Code(s): N18.32 - Chronic kidney disease, stage 3b Status: Acute (2) Altered mental status: Code(s): R41.82 - Altered mental status, unspecified Status: Acute Additional Plan encephalopathy will continue the treatment as such Review of Systems Review of Systems: All systems reviewed & are unremarkable except as noted in HPI and below Exam Narrative: Exam Narrative: continues to be confused ear nose throat examination normal heart regular lungs clear abdomen soft neurologically no focal neurological deficit except the confusion and disorientation Objective Data Vital Signs Vital Signs: Vital Signs - 24 hr 05/09/20 12:00 05/09/20 14:00 05/09/20 20:00 Temperature 37.0 C Pulse Rate 91 Pulse Rate [Left Radial Palpation] 92 85 Respiratory Rate 20 Blood Pressure 108/76 108/76 Pulse Oximetry 100 05/09/20 20:55 05/09/20 22:00 05/10/20 00:00 Temperature 36.2 C L Pulse Rate 85 98 Pulse Rate [Left Radial Palpation] 94 Respiratory Rate 20 Blood Pressure 112/78 Pulse Oximetry 96 05/10/20 03:59 05/10/20 05:30 05/10/20 08:00 Temperature 36.3 C L Pulse Rate 56 L 80 Pulse Rate [Left Radial Palpation] 90 Respiratory Rate 20 20 Blood Pressure 109/61 Pulse Oximetry 98 98 05/10/20 10:03 Temperature Pulse Rate 80 Pulse Rate [Left Radial Palpation] Respiratory Rate Blood Pressure Pulse Oximetry Intake/Output Intake/Output: Intake & Output 05/07/20 05/08/20 05/09/20 05/10/20 23:59 23:59 23:59 23:59 Intake Total 2360 2280 1720 660 Output Total 400 600 800 450 Balance 1960 1680 920 210 Meds/Results Medications: Active Medications Generic Name Dose Route Start Last Admin Trade Name Freq PRN Reason Stop Dose Admin Acetaminophen 650 mg 05/07/20 12:08 Acetaminophen 325 Mg Tablet PO Q4H PRN Mild Pain (1-3) or Fever Hydrocodone Bitart/Acetaminophen 1 tab 05/07/20 12:08 Hydrocodone/Acetaminophen (*Crx) 5-325 Mg Tablet PO Q4H PRN Pain Rated 4-6 Aspirin 81 mg 05/08/20 09:00 05/10/20 10:01 Aspirin 81 Mg Enteric Tablet PO 81 mg DAILY MIGUEL ÁNGEL Administration Carvedilol 25 mg 05/07/20 21:00 05/10/20 10:03 Carvedilol 25 Mg Tablet BY MOUTH 25 mg Q12HR MIGUEL ÁNGEL Administration Fluticasone Propionate 2 spray 05/08/20 09:00 05/10/20 10:02 Fluticasone Propionate 0.05% Na Spr 16 Gm Btl (*Bkc) NASAL 2 spray DAILY MIGUEL ÁNGEL Administration Folic Acid 1 mg 05/08/20 09:00 05/10/20 10:02 Folic Acid 1 Mg Tablet PO 1 mg DAILY MIGUEL ÁNGEL Administration Sodium Chloride 1,000 mls @ 60 mls/hr 05/07/20 12:10 05/09/20 07:28 Normal Saline Iv IV CONT Not Given .[id number] [facility] Melatonin 3 mg 05/08/20 21:00 05/09/20 20:55 Melatonin 3 Mg Tablet PO 3 mg HS MIGUEL ÁNGEL Administration Morphine Sulfate 4 mg 05/07/20 12:08 Morphine Sulfate (*Crx) 4 Mg/Ml Inj IV PUSH Q2H PRN Pain Rated 7-10 Multivitamins Therapeutic 1 tablet 05/08/20 09:00 05/10/20 10:02 Multivitamins Therapeutic Tab (*Bkc) PO 1 tablet DAILY [facility] Administration Non-Formulary Medication 1 mg 05/08/20 09:00 Finasteride PO 06/07/20 09:01 DAILY [facility] Tamsulosin HCl 0.4 mg 05/08/20 09:00 05/10/20 10:02 Tamsulosin Hcl 0.4 Mg Capsule PO 0.4 mg DAILY [facility] Administration Thiamine HCl 100 mg 05/08/20 09:00 05/10/20 10:02 Thiamine Hcl 100 Mg Tablet PO 100 mg QAM [facility] Administration Warfarin Sodium 1.5 mg 05/09/20 17:00 05/09/20 17:33 Warfarin (*Pbkc) 1.5 Mg Tablet PO 1.5 mg [id number] [facility] Administration Warfarin Sodium 3 mg 05/08/20 17:00 05/08/20 17:48 Warfarin (*Pbkc) 3 Mg Tablet PO 3 mg [id number] MIGUEL ÁNGEL Administration Radiology Results: ITS Impressions Head CT 05/07/20 10:21 IMPRESSION: 1. Old infarcts in the bilateral basal ganglia, right occipital lobe, and right cerebellum.
--- NOTE | 2020-05-10 12:54 | P.PNNP_ITS ---
Progress Note: A&P Assessment and Plan (1) JENNIFER (acute kidney injury): Code(s): N17.9 - Acute kidney failure, unspecified Status: Acute Assessment and Plan: * back to baseline * Urine electrolytes were pre renal. * Urinalysis is bland * etiology not clear * Renal sonogram shows borderline small right kidney but otherwise okay. * Bladder ultrasound shows a nodular filling defect. * Possibly the patient was pre renal from diuretics plus decreased intake. * Will restart diuretics now that he is back to baseline so that he does not go back into heart failure. (2) Chronic renal failure, stage 3b: Code(s): N18.32 - Chronic kidney disease, stage 3b Status: Acute Assessment and Plan: * baseline creatinine ~ 1.4 - 1.7mg/dl in the last few years * due to cardiomyopathy and necessity of diuretics to keep edema/volume status stable (variation of cardiorenal syndrome) * outpatient serological evaluation was negative (3) Altered mental status: Code(s): R41.82 - Altered mental status, unspecified Status: Acute Assessment and Plan: * etiology? * due to liver issues? * drug reaction? * Neurology following and evaluating * follow mental status (4) Elevated liver enzymes: Code(s): R74.8 - Abnormal levels of other serum enzymes Status: Acute Assessment and Plan: * as noted by admission labs * Gastroenterology following with recommendations/testing noted * will follow trend (5) Ischemic cardiomyopathy: Code(s): I25.5 - Ischemic cardiomyopathy Status: Acute Assessment and Plan: * last EF noted to be ~ 30% * follow volume status closely * Will restart diuretics today. * He came in on Bumex 2 mg a day. He still not eating the greatest so will restart 1 mg a day. Will continue to follow. 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 He will need to see Urology. Subjective Date/time seen: 05/10/20 12:54 Interval history: The patient is feeling okay. He has some asthma and so has a cough and a little shortness of breath. But this is just about his baseline. No urinary problems. Review of Systems Cardiovascular: Cardiovascular: Reports no additional cardiovascular complaints Respiratory: Respiratory: Reports no additional respiratory complaints Gastrointestinal: Gastrointestinal: Reports no additional gastrointestinal complaints Genitourinary: Genitourinary: Reports no additional male genitourinary complaints Exam Narrative: Exam Narrative: General: Elderly male in NAD Heart: normal S1 and S2; no rub Lungs: clear anteriorly but decreased at bases. Some increase in expiratory phase Abdomen: soft, nontender, nondistended, positive bowel sounds Extremities: no edema Skin: warm and dry Objective Data Vital Signs Vital Signs: Vital Signs - 24 hr 05/09/20 14:00 05/09/20 20:00 05/09/20 20:55 Temperature 37.0 C Pulse Rate 91 85 Pulse Rate [Left Radial Palpation] 85 Respiratory Rate 20 Blood Pressure 108/76 Pulse Oximetry 100 05/09/20 22:00 05/10/20 00:00 05/10/20 03:59 Temperature 36.2 C L
--- NOTE | 2020-05-10 12:54 | PM.PNNEP ---
Progress Note: A&P Assessment and Plan (1) JENNIFER (acute kidney injury): Code(s): N17.9 - Acute kidney failure, unspecified Status: Acute Assessment and Plan: back to baseline Urine electrolytes were pre renal. Urinalysis is bland etiology not clear Renal sonogram shows borderline small right kidney but otherwise okay. Bladder ultrasound shows a nodular filling defect. Possibly the patient was pre renal from diuretics plus decreased intake. Will restart diuretics now that he is back to baseline so that he does not go back into heart failure. (2) Chronic renal failure, stage 3b: Code(s): N18.32 - Chronic kidney disease, stage 3b Status: Acute Assessment and Plan: baseline creatinine ~ 1.4 - 1.7mg/dl in the last few years due to cardiomyopathy and necessity of diuretics to keep edema/volume status stable (variation of cardiorenal syndrome) outpatient serological evaluation was negative (3) Altered mental status: Code(s): R41.82 - Altered mental status, unspecified Status: Acute Assessment and Plan: etiology? due to liver issues? drug reaction? Neurology following and evaluating follow mental status (4) Elevated liver enzymes: Code(s): R74.8 - Abnormal levels of other serum enzymes Status: Acute Assessment and Plan: as noted by admission labs Gastroenterology following with recommendations/testing noted will follow trend (5) Ischemic cardiomyopathy: Code(s): I25.5 - Ischemic cardiomyopathy Status: Acute Assessment and Plan: last EF noted to be ~ 30% follow volume status closely Will restart diuretics today. He came in on Bumex 2 mg a day. He still not eating the greatest so will restart 1 mg a day. Will continue to follow. 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 He will need to see Urology. Subjective Date/time seen: 05/10/20 12:54 Interval history: The patient is feeling okay. He has some asthma and so has a cough and a little shortness of breath. But this is just about his baseline. No urinary problems. Review of Systems Cardiovascular: Cardiovascular: Reports no additional cardiovascular complaints Respiratory: Respiratory: Reports no additional respiratory complaints Gastrointestinal: Gastrointestinal: Reports no additional gastrointestinal complaints Genitourinary: Genitourinary: Reports no additional male genitourinary complaints Exam Narrative: Exam Narrative: General: Elderly male in NAD Heart: normal S1 and S2; no rub Lungs: clear anteriorly but decreased at bases. Some increase in expiratory phase Abdomen: soft, nontender, nondistended, positive bowel sounds Extremities: no edema Skin: warm and dry Objective Data Vital Signs Vital Signs: Vital Signs - 24 hr 05/09/20 14:00 05/09/20 20:00 05/09/20 20:55 Temperature 37.0 C Pulse Rate 91 85 Pulse Rate [Left Radial Palpation] 85 Respiratory Rate 20 Blood Pressure 108/76 Pulse Oximetry 100 05/09/20 22:00 05/10/20 00:00 05/10/20 03:59 Temperature 36.2 C L Pulse Rate 98 Pulse Rate [Left Radial Palpation] 94 90 Respiratory Rate 20 Blood Pressure 112/78 Pulse Oximetry 96 05/10/20 05:30 05/10/20 08:00 05/10/20 10:03 Temperature 36.3 C L Pulse Rate 56 L 80 80 Pulse Rate [Left Radial Palpation] Respiratory Rate 20 20 Blood Pressure 109/61 Pulse Oximetry 98 98 Intake/Output Intake/Output: Intake & Output 05/07/20 05/08/20 05/09/20 05/10/20 23:59 23:59 23:59 23:59 Intake Total 2360 2280 1720 660 Output Total 400 600 800 450 Balance 1960 1680 920 210 Meds/Results Medications: Active Medications Generic Name Dose Route Start Last Admin Trade Name Mikeq BRE Neri
--- NOTE | 2020-05-10 13:36 | PM.IMPN ---
Progress Note: A&P Assessment and Plan (1) Lethargy: Code(s): R53.83 - Other fatigue Status: Acute Assessment and Plan: -patient still has disorganized thoughts, speech is still slurred, is able to keep his eyes open now -etiology of acute encephalopathy unclear, likely metabolic or could be dementia -neurology consult following, who believes is likely acute metabolic encephalopathy versus dementia, discussed with family on 05/10/2020 who agree that patient has had more episodes of memory loss over last couple years and especially the last couple months -renal function back to baseline Lasix been restarted -GI and nephrology are also following case (2) CRF (chronic renal failure): Qualifiers: Chronic kidney disease stage: stage 3 (moderate) Chronic kidney disease stage 3 subtype: stage 3b (GFR 30-44) Qualified Code(s): N18.32 - Chronic kidney disease, stage 3b Code(s): N18.9 - Chronic kidney disease, unspecified Status: Chronic Assessment and Plan: CKD stage III. His baseline creatinine is typically between 1.5 and 1.7. Creatinine down to baseline. Restarting Lasix (3) Elevated liver enzymes: Code(s): R74.8 - Abnormal levels of other serum enzymes Status: Acute Assessment and Plan: -GI consult -right upper quadrant ultrasound suggest portal hypertension and cirrhosis, nonspecific gallbladder wall thickening -will trend transaminitis, improving (4) Atrial fibrillation and flutter: Code(s): I48.91 - Unspecified atrial fibrillation; I48.92 - Unspecified atrial flutter Status: Chronic Assessment and Plan: -continue home Coumadin for anticoagulation -continue Coreg for rate control -aortic valve replacement (5) Hypertension: Qualifiers: Hypertension type: essential hypertension Qualified Code(s): I10 - Essential (primary) hypertension Code(s): I10 - Essential (primary) hypertension Status: Chronic Assessment and Plan: -Continue with Coreg if blood pressure is stable. (6) Hyperlipidemia: Qualifiers: Hyperlipidemia type: mixed hyperlipidemia Qualified Code(s): E78.2 - Mixed hyperlipidemia Code(s): E78.5 - Hyperlipidemia, unspecified Status: Chronic Assessment and Plan: Holding statin with elevated LFTs (7) Cardiac defibrillator in place: Code(s): Z95.810 - Presence of automatic (implantable) cardiac defibrillator Status: Acute Assessment and Plan: AICD follows Dr. 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 Patient stated having a bowel movement helped with dyspnea as well Additional Plan Diet: Cardiac Code status: Full code DVT prophylaxis: On warfarin, will check goal INR Disposition: Inpatient, pending PT eval, patient will likely need rehab Subjective Date/time seen: 05/10/20 13:36 Patient examined. Discussed with family, son progress. There is some concern from the family that patient may have early signs of dementia as he has difficulty remembering things and has lots of episodes of memory deficit. Patient had difficulty talking about the events of last couple days. He is able to keep his eyes open today without problems and maintain more of a conversation, slowly improving. Patient to have physical therapy today help evaluate for disposition. Patient had bowel movement and feels his breathing is much better, I offered to give him suppository to get more stool
[2020-05-10] MEDS: BUMETANIDE 1 MG TABLET PO (17:37)
[2020-05-10] MEDS: WARFARIN (*PBKC) 3 MG TABLET PO (17:38)
[2020-05-10] MEDS: MELATONIN 3 MG TABLET PO (19:56)
[2020-05-11] VITALS (7 sets, daily range): BP systolic 95–111; BP diastolic 40–78; PULSE 77–98; RESP 18–20; TEMP 36–36.6; O2SAT 95–98
[2020-05-11 06:50] LABS: INR 3.1; Prothrombin Time 32.5 Seconds (11.1-14.7)
[2020-05-11 07:06] LABS: Alanine Aminotransferase 260 U/L (4-50); Alkaline Phosphatase 107 U/L (38-126); Anion Gap 5 mmol/L (8-16); Aspartate Amino Transferase 125 U/L (17-59); Bilirubin,Total 0.8 mg/dL (0.2-1.3); Blood Urea Nitrogen 46 mg/dL (9-20); Calcium 8.2 mg/dL (8.4-10.2); Carbon Dioxide 29 mmol/L (22-30); Chloride 98 mmol/L (98-107); Estimated CRCL calculation 27 ml/min; Estimated Glomerular Filt Rate 39; Glucose 95 mg/dL (75-110); Phosphorus 3.6 mg/dL (2.5-4.5); Potassium 4.4 mmol/L (3.4-5.0); Sodium 132 mmol/L (137-145)
[2020-05-11] MEDS: carvediloL 25 MG TABLET BY MOUTH (08:24)
[2020-05-11] MEDS: ASPIRIN 81 MG ENTERIC TABLET PO (08:24)
[2020-05-11] MEDS: THIAMINE HCL 100 MG TABLET PO (08:24)
[2020-05-11] MEDS: TAMSULOSIN HCL 0.4 MG CAPSULE PO (08:25)
[2020-05-11] MEDS: MULTIVITAMINS THERAPEUTIC TAB (*BKC) 1 TABLET PO (08:25)
[2020-05-11] MEDS: FOLIC ACID 1 MG TABLET PO (08:25)
[2020-05-11] MEDS: FLUTICASONE PROPIONATE 0.05% NA SPR 16 GM BTL (*BKC) 2 SPRAY NASAL (08:25)
[2020-05-11] MEDS: BUMETANIDE 1 MG TABLET PO (08:25)
[2020-05-11 10:42] LABS: Mitochondrial (M2) Ab (IgG) <=20.0 U (<=20.0)
--- NOTE | 2020-05-11 11:31 | PM.IMPN ---
Progress Note: A&P Assessment and Plan (1) Lethargy: Code(s): R53.83 - Other fatigue Status: Acute Assessment and Plan: -improving, patient able to keep his eyes open spontaneously, has no complaints, less repetition in his thought process, speech is still slightly slurred may be baseline -PT and OT to evaluate tomorrow for disposition -neurology consult following, may be acute metabolic encephalopathy that is resolving with may be underlying dementia -will have speech therapy do cognitive evaluation tomorrow -renal function back to baseline Lasix been restarted 05/10- -encourage out of bed today and up to chair (2) CRF (chronic renal failure): Qualifiers: Chronic kidney disease stage: stage 3 (moderate) Chronic kidney disease stage 3 subtype: stage 3b (GFR 30-44) Qualified Code(s): N18.32 - Chronic kidney disease, stage 3b Code(s): N18.9 - Chronic kidney disease, unspecified Status: Chronic Assessment and Plan: -CKD stage III. His baseline creatinine is typically between 1.5 and 1.7. Creatinine down to baseline. continue lasix (3) Elevated liver enzymes: Code(s): R74.8 - Abnormal levels of other serum enzymes Status: Acute Assessment and Plan: -GI consult -right upper quadrant ultrasound suggest portal hypertension and cirrhosis, nonspecific gallbladder wall thickening -will trend transaminitis, improving (4) Atrial fibrillation and flutter: Code(s): I48.91 - Unspecified atrial fibrillation; I48.92 - Unspecified atrial flutter Status: Chronic Assessment and Plan: -continue home Coumadin for anticoagulation -continue Coreg for rate control -aortic valve replacement (5) Hypertension: Qualifiers: Hypertension type: essential hypertension Qualified Code(s): I10 - Essential (primary) hypertension Code(s): I10 - Essential (primary) hypertension Status: Chronic Assessment and Plan: -Continue with Coreg if blood pressure is stable. (6) Hyperlipidemia: Qualifiers: Hyperlipidemia type: mixed hyperlipidemia Qualified Code(s): E78.2 - Mixed hyperlipidemia Code(s): E78.5 - Hyperlipidemia, unspecified Status: Chronic Assessment and Plan: -Holding statin with elevated LFTs (7) Cardiac defibrillator in place: Code(s): Z95.810 - Presence of automatic (implantable) cardiac defibrillator Status: Acute Assessment and Plan: -AICD follows Dr. Kaufman (8) H/O aortic valve replacement: Code(s): Z95.2 - Presence of prosthetic heart valve Status: Acute Assessment and Plan: -#23 magna aortic valve replacement, which is bioprosthetic -continue warfarin for anticoagulation, goal INR 2-3 with bioprosthetic aortic valve replacement (9) CHF (congestive heart failure), NYHA class I: Code(s): I50.9 - Heart failure, unspecified Status: Acute Assessment and Plan: -restarting Lasix 05/10/2020, creatinine baseline in Lasix may help with dyspnea -patient believes breathing back to baseline, will have him ambulate and see how his breathing is with activity Additional Plan Diet: Cardiac Code status: Full code DVT prophylaxis: On warfarin Disposition: Inpatient, pending PT eval and cognition evaluation, patient will likely need rehab Subjective Date/time seen: 05/11/20 11:31 Patient examined. Yesterday family meeting, son understand disposition plan. Will get patient up to chair today and out of bed. Consult speech for impaired cognition, they will follow-up tomorrow. Will have physical therapy evaluate tomorrow as well for disposition planning. Patient states his breathing is much better since his Lasix has been started. Will plan for discharge tomorrow if possible. Review of Systems Review of Systems: All systems reviewed & are unremarkable except as noted in HPI and below Exam Narrative: Exam Narrative: - GENERAL: Elderly man, les
--- NOTE | 2020-05-11 18:34 | PC.NURSE ---
This pt's CIWA's score was less than 8 for more than 24 hours. CIWA order discontinued per original order.
[2020-05-11] MEDS: MELATONIN 3 MG TABLET PO (21:09)
[2020-05-12] VITALS: BP 100/64; PULSE 88; RESP 18; TEMP 36.4; O2SAT 96
[2020-05-12 04:00] VITALS: BP 100/62; PULSE 69; RESP 18; TEMP 36.7; O2SAT 93
[2020-05-12 07:16] LABS: Prothrombin Time 31.5 Seconds (11.1-14.7)
[2020-05-12 07:20] LABS: Albumin Level 2.9 g/dL (3.5-5.1); Anion Gap 7 mmol/L (8-16); Blood Urea Nitrogen 50 mg/dL (9-20); Carbon Dioxide 29 mmol/L (22-30); Chloride 95 mmol/L (98-107); Estimated CRCL calculation 24 ml/min; Estimated Glomerular Filt Rate 35; Glucose 96 mg/dL (75-110); Phosphorus 3.5 mg/dL (2.5-4.5); Potassium 3.8 mmol/L (3.4-5.0); Sodium 131 mmol/L (137-145)
[2020-05-12 08:00] VITALS: PULSE 69; RESP 18; O2SAT 93
[2020-05-12 09:50] VITALS: PULSE 69
[2020-05-12] MEDS: carvediloL 25 MG TABLET BY MOUTH (09:50)
[2020-05-12] MEDS: MULTIVITAMINS THERAPEUTIC TAB (*BKC) 1 TABLET PO (09:50)
[2020-05-12] MEDS: BUMETANIDE 1 MG TABLET PO (09:51)
[2020-05-12] MEDS: ASPIRIN 81 MG ENTERIC TABLET PO (09:51)
[2020-05-12] MEDS: FOLIC ACID 1 MG TABLET PO (09:52)
[2020-05-12] MEDS: TAMSULOSIN HCL 0.4 MG CAPSULE PO (09:52)
[2020-05-12] MEDS: THIAMINE HCL 100 MG TABLET PO (09:52)
[2020-05-12] MEDS: FLUTICASONE PROPIONATE 0.05% NA SPR 16 GM BTL (*BKC) 2 SPRAY NASAL (09:54)
--- NOTE | 2020-05-12 10:43 | WPDGIPROGNO ---
Progress Note: A&P Assessment and Plan (1) Elevated liver enzymes: Code(s): R74.8 - Abnormal levels of other serum enzymes Status: Acute Assessment and Plan: Patient has had gradual improvement in LFTs. Ultrasound and CT scan appear nonspecific. No definite cirrhosis by these findings. I suspect elevated LFTs likely related to passive congestion of the liver and is congestive heart failure. Supportive care advised at present. Will continue to monitor LFTs conservatively. Additional lab work pending. No viral hepatitis evident. (2) Altered mental status: Code(s): R41.82 - Altered mental status, unspecified Status: Acute Assessment and Plan: Neurology service monitoring patient. Ammonia level was normal. Suggesting this is not from liver disease. (3) Chronic renal failure, stage 3b: Code(s): N18.32 - Chronic kidney disease, stage 3b Status: Acute (4) CHF (congestive heart failure), NYHA class I: Code(s): I50.9 - Heart failure, unspecified Status: Acute Assessment and Plan: Congestive heart failure being treated. Likely contributes to elevated LFTs. (5) Atrial fibrillation and flutter: Code(s): I48.91 - Unspecified atrial fibrillation; I48.92 - Unspecified atrial flutter Status: Chronic Assessment and Plan: Patient with atrial fibrillation also with aortic valve replacement. Remains on Coumadin anticoagulation. Protime appears to be elevated at present on this basis. Subjective Date/time seen: 05/12/20 10:43 Patient remains somewhat confused. No obvious change in mentation. Perhaps more weight. Review of Systems Review of Systems: ROS unobtainable: Yes unobtainable due to medical condition Exam Narrative: Exam Narrative: On physical exam vital signs are stable. Lungs reveal a few rhonchi. Abdomen bowel sounds are present soft nontender with no organomegaly. Objective Data Vital Signs Vital Signs: Vital Signs - 24 hr 05/11/20 14:00 05/11/20 19:40 05/11/20 22:00 Temperature 97.9 F 97.4 F L Pulse Rate 82 98 Respiratory Rate 20 18 20 Blood Pressure 95/69 L 100/40 L Pulse Oximetry 95 96 95 05/12/20 00:00 05/12/20 04:00 05/12/20 09:50 Temperature 97.5 F L 98.1 F Pulse Rate 88 69 69 Respiratory Rate 18 18 Blood Pressure 100/64 100/62 Pulse Oximetry 96 93 Intake/Output Intake/Output: Intake & Output 05/09/20 05/10/20 05/11/20 05/12/20 23:59 23:59 23:59 23:59 Intake Total 1720 1390 1580 490 Output Total 237 863 6550 400 Balance 920 765 430 90 Meds/Results Medications: Active Medications Generic Name Dose Route Start Last Admin Trade Name Freq PRN Reason Stop Dose Admin Acetaminophen 650 mg 05/07/20 12:08 Acetaminophen 325 Mg Tablet PO Q4H PRN Mild Pain (1-3) or Fever Hydrocodone Bitart/Acetaminophen 1 tab 05/07/20 12:08 Hydrocodone/Acetaminophen (*Crx) 5-325 Mg Tablet PO Q4H PRN Pain Rated 4-6 Aspirin 81 mg 05/08/20 09:00 05/12/20 09:51 Aspirin 81 Mg Enteric Tablet PO 81 mg DAILY MIGUEL ÁNGEL Administration Bumetanide 1 mg 05/10/20 13:05 05/12/20 09:51 Bumetanide 1 Mg Tablet PO 1 mg DAILY MIGUEL ÁNGEL Administration Carvedilol 25 mg 05/07/20 21:00 05/12/20 09:50 Carvedilol 25 Mg Tablet BY MOUTH 25 mg Q12HR MIGUEL ÁNGEL Administration Fluticasone Propionate 2 spray 05/08/20 09:00 05/12/20 09:54 Fluticasone Propionate 0.05% Na Spr 16 Gm Btl (*Bkc) NASAL 2 spray DAILY MIGUEL ÁNGEL Administration Folic Acid 1 mg 05/08/20 09:00 05/12/20 09:52 Folic Acid 1 Mg Tablet PO 1 mg DAILY MIGUEL ÁNGEL Administration Melatonin 3 mg 05/08/20 21:00 05/11/20 21:09 Melatonin 3 Mg Tablet PO 3 mg HS MIGUEL ÁNGEL Administration Morphine Sulfate 4 mg 05/07/20 12:08 Morphine Sulfate (*Crx) 4 Mg/Ml Inj IV PUSH Q2H PRN Pain Rated 7-10 Multivitamins Therapeutic 1 tablet 05/08/20 09:00 05/12/20 09:50 Multivitamins Therapeutic Tab (*Bkc) PO 1
--- NOTE | 2020-05-12 13:43 | PM.DS ---
DS: Admitting Diagnosis Admitting Diagnosis Admitting Diagnosis: marian,transaminitis,covid pui DS: Discharge Diagnosis Discharge Diagnosis (1) Lethargy: Code(s): R53.83 - Other fatigue Status: Acute Assessment and Plan: -much improved back to baseline, his likely altered mental status was likely acute metabolic encephalopathy from his zolpidem usage. His PCP does not want take zolpidem and I agree with that. -PT and OT recommend home health -neurology consult following, may be acute metabolic encephalopathy that is resolving with may be underlying dementia -speech therapy cognitive eval assessment shows mild deficits difficulty with recall of long and complex operation -renal function back to baseline diuresis restart 05/10- -patient was out of bed today and back to baseline (2) CRF (chronic renal failure): Qualifiers: Chronic kidney disease stage: stage 3 (moderate) Chronic kidney disease stage 3 subtype: stage 3b (GFR 30-44) Qualified Code(s): N18.32 - Chronic kidney disease, stage 3b Code(s): N18.9 - Chronic kidney disease, unspecified Status: Chronic Assessment and Plan: -CKD stage III. His baseline creatinine is typically between 1.5 and 1.7. Creatinine down to baseline. Nephrology recommends continue diuretics as creatinine came down to baseline. (3) Elevated liver enzymes: Code(s): R74.8 - Abnormal levels of other serum enzymes Status: Acute Assessment and Plan: -GI consult -right upper quadrant ultrasound suggest portal hypertension and cirrhosis, nonspecific gallbladder wall thickening -will trend transaminitis, improving -LFTs may be elevated secondary to congestive heart failure, supportive care (4) Atrial fibrillation and flutter: Code(s): I48.91 - Unspecified atrial fibrillation; I48.92 - Unspecified atrial flutter Status: Chronic Assessment and Plan: -continue home Coumadin for anticoagulation -continue Coreg for rate control -aortic valve replacement (5) Hypertension: Qualifiers: Hypertension type: essential hypertension Qualified Code(s): I10 - Essential (primary) hypertension Code(s): I10 - Essential (primary) hypertension Status: Chronic Assessment and Plan: -Continue with Coreg (6) Hyperlipidemia: Qualifiers: Hyperlipidemia type: mixed hyperlipidemia Qualified Code(s): E78.2 - Mixed hyperlipidemia Code(s): E78.5 - Hyperlipidemia, unspecified Status: Chronic Assessment and Plan: -Holding statin with elevated LFTs (7) Cardiac defibrillator in place: Code(s): Z95.810 - Presence of automatic (implantable) cardiac defibrillator Status: Acute Assessment and Plan: -AICD follows Dr. Kaufman (8) H/O aortic valve replacement: Code(s): Z95.2 - Presence of prosthetic heart valve Status: Acute Assessment and Plan: -#23 magna aortic valve replacement, which is bioprosthetic -continue warfarin for anticoagulation, goal INR 2-3 with bioprosthetic aortic valve replacement, continue warfarin (9) CHF (congestive heart failure), NYHA class I: Code(s): I50.9 - Heart failure, unspecified Status: Acute Assessment and Plan: Patient can resume his b.i.d. Bumex 1 mg DS: Summary Hospital Course Reason for hospitalization: Acute encephalopathy Hospital Course: Patient is a 79-year-old male past medical history of chronic renal failure stage 3, AFib, distal heart failure, aortic valve replacement. Patient had increasing memory loss issues and not fail to go to his cardiology appointment. During his appointment he was falling asleep and was having disorganized thought prompting erp programmer to send him to the emergency department. Patient appeared to have acute encephalopathy secondary unknown cause. Patient had labs that were very nonfocal. He had elevated LFTs which gastrology fashion consultant sales believes is secondary to hea
[2020-05-12 14:59] LABS: Ceruloplasmin 50 mg/dL (18-36)
[2020-05-13 01:01] LABS: SARS-CoV-2 RNA PCR Negative
== END 2020-05-12 15:48 | disposition home health service (06) | DRG 682 ==
LOC: ANHED 11:26 → ANH3MEDSUR 12:56
PROVIDERS: Internal Medicine; Internal Medicine Gastroenterology; Internal Medicine Nephrology; Nurse Practitioner; Admitting Provider Family Medicine; Emergency Provider Emergency Medicine; PCP Family Medicine; Visit Provider Student in an Organized Health Care Education/Training Program
DX: N17.9 Acute kidney failure, unspecified (principal); G93.41 Metabolic encephalopathy; I13.0 Hypertensive heart and chronic kidney disease with heart failure and stage 1 through stage 4 chronic kidney disease, or unspecified chronic kidney disease; I48.92 Unspecified atrial flutter; Z20.828 Contact with and (suspected) exposure to other viral communicable diseases; N18.30 Chronic kidney disease, stage 3 unspecified; I50.9 Heart failure, unspecified; E78.5 Hyperlipidemia, unspecified; N40.0 Benign prostatic hyperplasia without lower urinary tract symptoms; I25.5 Ischemic cardiomyopathy; I25.10 Atherosclerotic heart disease of native coronary artery without angina pectoris; I48.91 Unspecified atrial fibrillation; R74.8 Abnormal levels of other serum enzymes; Z85.828 Personal history of other malignant neoplasm of skin; Z86.73 Personal history of transient ischemic attack (TIA), and cerebral infarction without residual deficits; Z95.1 Presence of aortocoronary bypass graft; Z95.2 Presence of prosthetic heart valve; Z95.810 Presence of automatic (implantable) cardiac defibrillator; Z87.891 Personal history of nicotine dependence; Q64.79 Other congenital malformations of bladder and urethra
CPT/HCPCS: 36415; 36600; 70450; 71045; 71046; 74176; 76705; 76775; 80048; 80053; 80069; 80074; 80076; 80307; 81001; 81003; 81050; 82104; 82140; 82390; 82570; 82728; 82805; 83520; 83690; 83735; 84156; 84300; 84443; 85025; 85610; 85730; 86038; 86140; 87635; 92523; 93005; 96360; 96361; 97110; 97116; 97162; 97165; 99285; A9270; C9803; G0378; J7030; U0003

== ENCOUNTER 2020-05-18 11:06 | Observation (INO) | payer MEDICARE, SELFPAY ==
[2020-05-18] VITALS (27 sets, daily range): BP systolic 85–119; BP diastolic 63–92; PULSE 88–104; RESP 15–31; TEMP 36.3–36.7; O2SAT 61–99; BMI 24.7
--- NOTE | ~2020-05-18 | CT_ITS ---
EXAMINATION: CT brain wo con DATE: 05/19/2020 06:36 INDICATION: Facial trauma. TECHNIQUE: Computed tomography (CT) of the head was performed without intravenous contrast. Sagittal and coronal reconstructions were performed. The mA was adjusted according to patient size. Iterative reconstruction technique was employed. The dose-length product was 681.00 mGy-cm. COMPARISON: head CT dated 07/07/2019 FINDINGS: No fracture of the calvarium or maxillofacial bones although portions of the mandible are excluded fr om the [id number]. 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 Sm all old infarcts at the right occipital lobe, bilateral basal ganglia, right cerebellar hemisphere an d right side of the denilson. No acute intracranial hemorrhage, acute infarction or abnormal extra axial fluid collection. There is mild scattered white matter hypoattenuation consistent with chronic small vessel ischemic disease. Symmetric prominence of the sulci consistent with mild age-appropriate diff use cerebral volume loss. Ventricles are normal and symmetric. No mass/mass effect. Mucosal thickeni ng in the bilateral maxillary and ethmoid sinuses. The orbits and mastoid air cells are normal. Intra cranial calcified cerebral atherosclerosis is noted. IMPRESSION: 1. No fracture or acute intracranial process. 2. Small old infarcts in the bilateral basal ganglia, right occipital lobe, right side of the denilson an d right cerebellum. 3. Age-related changes including mild diffuse volume loss and mild scattered white matter hypoattenua tion consistent with chronic small vessel ischemic disease. Reviewed, dictated and finalized at location A. L STRUCTURAL ENGINEER IMPRESSION: 1. No fracture or acute intracranial process. 2. Small old infarcts in the bilateral basal ganglia, right occipital lobe, rig ht side of the denilson and right cerebellum. 3. Age-related changes including mild diffuse volume loss and mild scattered wh ite matter hypoattenuation consistent with chronic small vessel ischemic diseas e.
--- NOTE | ~2020-05-18 | XR_ITS ---
XR chest 2V 05/18/2020 11:44 Indication: Weakness and shortness of breath. Procedure: AP and lateral views of the chest Comparison: Comparison to multiple prior studies sequentially, with oldest reviewed study dated 07/13. Findings: Status post median sternotomy for CABG. Pacemaker leads in expected position. Cardiomegaly. There is a prosthetic heart valve. No focal air space disease, pulmonary edema, pleural effusion or suspected pneumothorax. Impression: 1: No acute cardiopulmonary disease. Reviewed, dictated and finalized at location A. MAN Impression: 1: No acute cardiopulmonary disease.
--- NOTE | 2020-05-18 11:25 | ECG_ITS ---
Measurements Intervals [place] Rate: 98 P: [place]: 0 QRS: 104 QRSD: 119 T: 267 QT: 358 QTc: 459 Interpretive Statements ATRIAL FIBRILLATION VENTRICULAR PREMATURE COMPLEX RIGHT AXIS DEVIATION LEFT BUNDLE BRANCH BLOCK BASELINE ARTIFACT- I, II, III, AVR, AVL, AVF, V1-V2, V4-V6 ABNORMAL ECG Electronically Signed On 05-18-2020 14:32:12 DONOR TECHNICIAN by Estevan Arellano D.O.
[2020-05-18] MEDS: SODIUM CHLORIDE 0.9% IV 1,000 ML 999 ML IV CONT ×2 (11:55→13:04)
[2020-05-18 11:57] LABS: Basophils Percent Auto 0.3 % (0.2-1.2); Eosinophils Absolute Auto 0.1 K/mm3 (0-0.3); Eosinophils Percent Auto 1.6 % (0-4.4); Hematocrit 38.7 % (42.0-52.0); Hemoglobin 12.4 g/dL (14.0-18.0); Immature Granulocyte Absolute 0.04 K/mm3 (0.00-0.031); Immature Granulocyte Percent A 0.5 % (0-0.5); Lymphocytes Absolute Auto 0.73 K/mm3 (0.9-3.2); Lymphocytes Percent Auto 9.8 % (18.3-44.2); Mean Corpuscular Hemoglobin 28.6 pg (26-34); Mean Corpuscular Volume 89.2 fl (80-100); Mean Platelet Volume 10.1 fl (7.4-10.4); Monocytes Percent Auto 13.3 % (2.6-8.5); Neutrophils Absolute Auto 5.6 K/mm3 (1.3-6.7); Neutrophils Percent Auto 74.5 % (45.5-73.1); Platelet Count Result 199 k/mm3 (150-375); Red Blood Count 4.34 M/mm3 (4.6-6.20); Red Cell Distribution Width 14.9 % (11.5-14.5); White Blood Count 7.5 K/mm3 (4.5-10.0)
[2020-05-18 12:09] LABS: Alanine Aminotransferase 111 U/L (4-50); Albumin Level 3.2 g/dL (3.5-5.1); Alkaline Phosphatase 91 U/L (38-126); Anion Gap 5 mmol/L (8-16); Aspartate Amino Transferase 86 U/L (17-59); Blood Urea Nitrogen 52 mg/dL (9-20); Calcium 8.4 mg/dL (8.4-10.2); Carbon Dioxide 34 mmol/L (22-30); Chloride 95 mmol/L (98-107); Estimated CRCL calculation 30 ml/min; Estimated Glomerular Filt Rate 45; Glucose 90 mg/dL (75-110); Potassium 3.8 mmol/L (3.4-5.0); Sodium 134 mmol/L (137-145)
[2020-05-18 12:14] LABS: Creatine Kinase 526 U/L (55-170)
--- NOTE | 2020-05-18 12:35 | ED.GENADULT ---
HPI - General Adult General Chief complaint: Fall Stated complaint: fall/weakness Time Seen by Provider: 05/18/20 11:25 Source: patient and EMS History of Present Illness HPI narrative: Patient is a 79 y/o male brought in by EMS for weakness. Patient states that he fell and he was unable to get up. He denies any injury from the most recent fall. He states that he lives by himself and has been having frequent falls. Per EMS, his house is condemn for poor condition. Related Data Home Medications Medication Instructions Recorded Confirmed aspirin 81 mg tablet,delayed 81 mg PO DAILY 07/13/19 05/07/20 release atorvastatin 80 mg tablet 80 mg PO DAILY 07/13/19 05/07/20 multivitamin 1 tablet PO DAILY 07/13/19 05/07/20 tamsulosin 0.4 mg capsule 0.4 mg PO DAILY 07/13/19 05/07/20 warfarin 3 mg tablet 3 mg PO EVERY OTHER DAY 07/13/19 05/07/20 carvedilol 25 mg BID 05/07/20 05/07/20 spironolactone 25 mg DAILY 05/07/20 05/07/20 warfarin 1.5 mg PO EVERY OTHER DAY 05/07/20 05/07/20 Allergies Allergy/AdvReac Type Severity Reaction Status Date / Time No Known Allergies Allergy Verified 05/18/20 11:26 Review of Systems Constitutional: Constitutional: Reports as per HPI, Denies chills, Denies fever(s), Denies headache(s) and Reports weakness Eyes: Eyes: Denies blurry vision ENT: Denies headache(s) and Denies neck pain Cardiovascular: Cardiovascular: Denies chest pain and Denies dyspnea Respiratory: Respiratory: Denies cough and Denies dyspnea Gastrointestinal: Gastrointestinal: Denies abdominal pain, Denies diarrhea, Denies nausea and Denies vomiting Genitourinary: Genitourinary: Denies hematuria and Denies dysuria Musculoskeletal: Musculoskeletal: Denies back pain, Denies neck pain and Reports other (+falls) Neurologic: Denies headache(s) and Denies weakness [facility] Past Medical History Medical History Actinic keratoses Artificial pacemaker Atrial fibrillation and flutter BPH (benign prostatic hyperplasia) CAD in nez perce artery Carcinoma Cardiac defibrillator in place CHF (congestive heart failure), NYHA class I CRF (chronic renal failure) stage III CVA (cerebral vascular accident) Old infarcts in the bilateral basal ganglia, right occipital lobe, 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 History of carcinoma in situ of skin Hyperlipidemia Hypertension Pes cavus Plantar fasciitis Skin cancer multiple areas removed from his face Squamous cell carcinoma in situ Structural abnormality of bladder Wears glasses reading Surgical History Surgical History AICD (automatic cardioverter/defibrillator) present Aortic valve replaced mechanical History of removal of pigmented skin lesion S/P CABG (coronary artery bypass graft) Family History Family History Father , 91 years old Family history of cardiovascular disease Mother , 83 years old Cancer Social History Social History Social History: 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 He has 1 son who was Emil LOERA the 3rd. His son is his durable power mop machine operator for healthcare. The patient is a full code. He is . Patient denies any tobacco, alcohol, marijuana or illicit drugs. He lives alone. 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
--- NOTE | 2020-05-18 12:49 | PC.NURSE ---
called lab, adde don PT INR PTT, 1250
[2020-05-18 13:07] LABS: INR 3.4; Partial Thromboplastin Time 41.1 SECONDS (22.3-36.8); Prothrombin Time 34.6 Seconds (11.1-14.7)
[2020-05-18 13:20] LABS: Add Urine Microscopic? YES; Appearance Urine Clear (Clear); Bilirubin Urine Negative (Negative); Blood Urine 1+ (Negative); Color Urine Yellow (Yellow); Glucose Urine UA Negative (Negative); Ketones Urine Trace mg/dL (Negative); Leukocyte Esterase Ur Trace LEU/UL (Negative); Nitrate Urine Negative (Negative); Protein Urine Negative (Negative); Specific Grav Ur 1.015 (1.001-1.035); Urobilinogen Urine Negative mg/dL (<2.0); WBC Urine 0-3 /hpf
[2020-05-18] MEDS: SODIUM CHLORIDE 0.9% IV 1,000 ML 100 ML IV CONT (14:23)
--- NOTE | 2020-05-18 14:31 | ADMGEN ---
This patient, Emil Gonzalez Jr., was admitted to Medical Room 249-01. Patient/family oriented to hospital policies and general routines including ID bracelet, bed and alarms, visiting hours, pain management, procedures, bathroom and other care routines, personal items, smoking policy, room service/diet, and visiting hours. Information on how to activate the Rapid Response Team has been discussed. Patient/Family are encouraged to report perceived risks to care and to ask questions if they do not understand what they are told or what they should do.
--- NOTE | 2020-05-18 15:55 | PCCCNOTE ---
Spoke with pt while in ED about his discharge plan. He would like to return home. He gave me his son Emil's phone number and was agreeable for care coordination to talk about his discharge plan. Emil states pt can not return home and that he is not caring for himself well and possibly not taking his medications correctly. Emil would like assisted living, agreeable to fpc placement to get stronger while he looks for assisted living. 1st choice is [place], [place] and 2nd choice is [facility].
--- NOTE | 2020-05-18 21:14 | PM.IMHP ---
H&P: HPI History of Present Illness Date/Time: 05/18/20 21:14 Chief complaint: Rhabdomyolysis Narrative: Emil Gonzalez Jr. is a 79 year old male Who was admitted on 05/07/2020 due to lives her Elsy was falling asleep. It was discovered that the patient has been taking his Ambien is sometimes she takes more than what he should. He was taken off of his Ambien. The patient lives home alone. His creatinine had been higher than normal and he has chronic renal failure stage 3. His levels came back down and he was sent home with home health on 05/12/2020 the patient's mental status had improved. Who was seen by Nephrology at the time. There was some concern about possible underlying dementia. He had a speech therapy assessment which showed some mild deficits at that time. Patient also had some elevated liver enzymes which was thought to be due to his congestive heart failure. His statin was placed on hold due to elevated liver enzymes. He has a history of aortic valve replacement. And his Coumadin was continued. Rigoberto Gonzalez the 3rd is his durable power estate attorney for healthcare. The son went to the patient's house today and found him lying on the floor patient has hematoma to the left eye. The patient is on long-term anticoagulation. He was on warfarin. The patient had been started on IV fluids because it ER provider stated that the patient had rhabdomyolysis. Was noted to be 526. However this creatinine kinase does not fit the criteria for rhabdomyolysis. Typically is 5 times the upper limit or [id number] and some resources. Patient has edema to his lower extremities and has congestive heart failure so I stopped his IV fluids. Patient does have multiple bruising on the left side of his face and some on his arms as well. So I was suspect that the patient's creatinine kinase would be elevated somewhat. Will repeated now in the a.m.. However when the please came to the patient's house the patient stated that they condemned his house. He thinks that he cannot return back to his home. I do not think that his home was evaluated by the health department but somehow the patient thinks that his house has been condemned. He had been discharged just a week ago on home health. He was also check for COVID week ago and was found to be negative.. The last admission is Ambien was stopped due to his age in his confusion. However the patient is requesting the Ambien once again and he was denied by myself. I made other recommendations for sleeping aids other than Ambien. Patient was admitted into observation status on 05/18/2020 Review of Systems Review of Systems: All systems reviewed & are unremarkable except as noted in HPI and below Constitutional: Constitutional: Reports as per HPI and Reports no additional constitutional complaints Eyes: Eyes: Reports as per HPI and Reports no additional eye complaints ENT: Reports system reviewed and no additional complaints, except as documented and Reports Normal hearing present Cardiovascular: Cardiovascular: Reports no additional cardiovascular complaints Respiratory: Respiratory: Reports no additional respiratory complaints and Reports no additional respiratory complaints Gastrointestinal: Gastrointestinal: Reports as per HPI and Reports no additional gastrointestinal complaints Musculoskeletal: Musculoskeletal: Reports no additional musculoskeletal complaints Integumentary/Breasts: Skin/Breast: Reports system reviewed and no additional complaints, except as docu and Reports as per HPI Neurologic: Reports system reviewed and no additional complaints, except as documented, Reports as per HPI and Reports Normal hearing present Psychiatric: Psychiatric: Reports no additional psychiatric complaints and Reports as per HPI Endocrine: Endocrine: Reports no additional endocrine complaints Hematologic/Lymphatic: Hematologic/Lymphatic: Reports no additional hematologic/lymphatic complaints Allergic/Immunolog
[2020-05-18 21:39] LABS: Creatine Kinase 430 U/L (55-170)
[2020-05-18] MEDS: LORazepam INJ (*CRX) 2 MG/ML VIAL 0.5 MG IV PUSH (22:15)
[2020-05-18] MEDS: MELATONIN 3 MG TABLET PO (22:19)
[2020-05-19 03:19] VITALS: PULSE 77; RESP 18; O2SAT 100
[2020-05-19 03:24] LABS: Alveolar/Arterial O2 Gradient 24.4 mmHg; Base Excess ABG -0.5 mEq/l (+/-2.0); Carboxyhemoglobin 0.3 % THb (0-2.0); Device NASAL CANNULA; Fractional Inspired Oxygen 24 %; HCO3 ABG 23.3 mEq/l (22.0-26.0); Methemoglobin ABG 0.4 %THb (0-1.5); Modified Allen's Test Pass; Oxygen Content ABG 17.3 %vol (16.0-22.0); Oxygen Saturation ABG 97.9 % (95.0-100.0); Oxyhemoglobin 96.7 % THb (90.0-100.0); PCO2 ABG 35.9 mmHg (35.0-45.0); PO2 FiO2 Ratio Arterial Blood 4.33 %; Reduced Hemoglobin 2.6 %THb (0-5.0); Site Drawn RIGHT RADIAL; Total Hemoglobin 12.6 g/dL (12.0-18.0); pH ABG 7.431 (7.350-7.450)
--- NOTE | 2020-05-19 03:44 | PC.NURSE ---
pt found to have O2 sats at 58% with difficulty maintaining reading. several of pt fingers were blue appearing and pt was visibly experiencing dyspnea. Pt placed on 2L O2 and Dr Valdes was notified at which time he ordered ABGs. O2 sats improved finger discoloration improved while waiting for ABG results, which returned WNL except an elevated O2 saturation (104). Pt was at baseline appearance with no apparent dyspnea at end of event.
[2020-05-19 05:44] LABS: Basophils Percent Auto 0.4 % (0.2-1.2); Eosinophils Absolute Auto 0.2 K/mm3 (0-0.3); Eosinophils Percent Auto 1.9 % (0-4.4); Hematocrit 38.3 % (42.0-52.0); Hemoglobin 12.1 g/dL (14.0-18.0); Immature Granulocyte Absolute 0.06 K/mm3 (0.00-0.031); Immature Granulocyte Percent A 0.8 % (0-0.5); Lymphocytes Absolute Auto 0.73 K/mm3 (0.9-3.2); Lymphocytes Percent Auto 9.2 % (18.3-44.2); Mean Corpuscular HGB Conc 31.6 g/dl (32-36); Mean Corpuscular Hemoglobin 27.5 pg (26-34); Mean Platelet Volume 10.3 fl (7.4-10.4); Monocytes Percent Auto 12.4 % (2.6-8.5); Neutrophils Percent Auto 75.3 % (45.5-73.1); Platelet Count Result 189 k/mm3 (150-375); White Blood Count 7.9 K/mm3 (4.5-10.0)
[2020-05-19 05:47] LABS: INR 3.6; Prothrombin Time 36.5 Seconds (11.1-14.7)
[2020-05-19 05:52] VITALS: BP 101/70; PULSE 97; RESP 18; TEMP 36.2
[2020-05-19 06:15] LABS: Alanine Aminotransferase 86 U/L (4-50); Albumin Level 2.7 g/dL (3.5-5.1); Alkaline Phosphatase 78 U/L (38-126); Anion Gap 5 mmol/L (8-16); Aspartate Amino Transferase 77 U/L (17-59); Bilirubin,Total 0.6 mg/dL (0.2-1.3); Blood Urea Nitrogen 41 mg/dL (9-20); CRP 1.7 mg/dL (<1.0); Calcium 7.8 mg/dL (8.4-10.2); Carbon Dioxide 26 mmol/L (22-30); Chloride 101 mmol/L (98-107); Estimated CRCL calculation 34 ml/min; Estimated Glomerular Filt Rate 54; Glucose 124 mg/dL (75-110); Potassium 3.7 mmol/L (3.4-5.0); Sodium 132 mmol/L (137-145)
--- NOTE | 2020-05-19 06:31 | PC.NURSE ---
To Radiology per [bed/transportation personnel] for CT.
[2020-05-19 06:51] LABS: Erythrocyte Sedimentation Rate 5 mm/hr (0-20)
[2020-05-19 07:46] LABS: Creatine Kinase 504 U/L (55-170)
[2020-05-19] MEDS: ASPIRIN 81 MG ENTERIC TABLET PO (08:53)
[2020-05-19] MEDS: FLUTICASONE PROPIONATE 0.05% NA SPR 16 GM BTL (*BKC) 2 SPRAY NASAL (08:53)
[2020-05-19] MEDS: BUMETANIDE 1 MG TABLET 2 MG PO (08:53)
[2020-05-19] MEDS: FINASTERIDE 5 MG TABLET PO (08:53)
[2020-05-19] MEDS: MULTIVITAMINS THERAPEUTIC TAB (*BKC) 1 TABLET PO (08:53)
[2020-05-19] MEDS: SPIRONOLACTONE 25 MG TABLET PO (08:53)
--- NOTE | 2020-05-19 11:54 | PM.IMPN ---
Progress Note: A&P Assessment and Plan (1) Frequent falls: Code(s): R29.6 - Repeated falls Status: Acute Assessment and Plan: Patient admitted for rhabdomyolysis although CK running around 500 and does meet criteria for rhabdo. CC consulted as patient appears to not be able to take care of himself and he has noted that his house has been condemned. IV fluids given in the ED and have since been stopped. Pt/Ot ordered Monitor CK while inpatient PO intake encouraged CC following and will await disposition. (2) Weakness: Code(s): R53.1 - Weakness Status: Acute Assessment and Plan: Patient has been recently admitted and discharged with HH therapy but appears to have worsening weakness and continues to have frequent falls as noted above. Pt/Ot CC following Ambien held given his age and possibly contributing to symptoms Melatonin for now Will d/c ativan as this may contribute to symptoms as well. (3) H/O aortic valve replacement: Code(s): Z95.2 - Presence of prosthetic heart valve Status: Acute Assessment and Plan: Patient states he takes warfarin 3 mg every other day then 1.5 mg every other day, although ordered as only 1.5 mg TTS; will have nursing confirm. INR 3.6 Monitor INR Continue Warfarin (4) Altered mental status: Code(s): R41.82 - Altered mental status, unspecified Status: Acute Assessment and Plan: Patient appears to be A&O and answering question appropriately for me Ambien on hold Ativan d/c (5) Chronic renal failure, stage 3b: Code(s): N18.32 - Chronic kidney disease, stage 3b Status: Acute Assessment and Plan: Appears to be at baseline Monitor BMP (6) CHF (congestive heart failure), NYHA class I: Code(s): I50.9 - Heart failure, unspecified Status: Acute Assessment and Plan: Patient is edematous. Given IV fluids in the ED; these have since been stoppend Continue with home Bumex and spironolactone. Resume BB when BP improves (7) Hypertension: Qualifiers: Hypertension type: essential hypertension Qualified Code(s): I10 - Essential (primary) hypertension Code(s): I10 - Essential (primary) hypertension Status: Chronic Assessment and Plan: BP 100s sys this morning Continue with diuretics given edema BB on hold for now as BP soft; resume when appropriate (8) Hyperlipidemia: Qualifiers: Hyperlipidemia type: mixed hyperlipidemia Qualified Code(s): E78.2 - Mixed hyperlipidemia Code(s): E78.5 - Hyperlipidemia, unspecified Status: Chronic Assessment and Plan: Statin held given LFTs elevated Continue to hold statin (9) BPH (benign prostatic hyperplasia): Code(s): N40.0 - Benign prostatic hyperplasia without lower urinary tract symptoms Status: Chronic Assessment and Plan: No acute issues Continue home meds Subjective Date/time seen: 05/19/20 11:54 Interval history: Patient is a 79 yo M with history of aortic valve replacement (on chronic a/c with warfarin), a. fib with pacemaker, BPH, CAD, CHF, CRF, and CVA among other several other comorbidities who is seen in follow up for generalized weakness and frequent falls at home. He states he still is weak. His main concern is his housing situation at this moment. His stomach is somewhat upset right now. No other medical complaints. Denies f/c/s, headaches, dizziness, lightheadedness, cp/palpitations, sob/cough,v/d/c, abd pain, changes in BMs, dysuria, hematuria, cloudy urine, calf pain/swelling. Review of Systems
[2020-05-19 14:00] VITALS: BP 95/70; PULSE 92; RESP 18; TEMP 36.5; O2SAT 100
[2020-05-19] MEDS: MELATONIN 3 MG TABLET PO (20:40)
[2020-05-19] MEDS: TAMSULOSIN HCL 0.4 MG CAPSULE PO (20:40)
[2020-05-19 22:00] VITALS: BP 109/69; PULSE 91; RESP 20; TEMP 36.3; O2SAT 99
[2020-05-19 23:58] LABS: SARS-CoV-2 RNA PCR Negative
[2020-05-20 05:40] LABS: INR 2.6; Prothrombin Time 28.6 Seconds (11.1-14.7)
[2020-05-20 05:48] LABS: Alanine Aminotransferase 76 U/L (4-50); Albumin Level 2.8 g/dL (3.5-5.1); Alkaline Phosphatase 91 U/L (38-126); Anion Gap 4 mmol/L (8-16); Aspartate Amino Transferase 56 U/L (17-59); Bilirubin,Total 0.8 mg/dL (0.2-1.3); Blood Urea Nitrogen 37 mg/dL (9-20); Calcium 8.2 mg/dL (8.4-10.2); Carbon Dioxide 30 mmol/L (22-30); Chloride 99 mmol/L (98-107); Creatine Kinase 176 U/L (55-170); Estimated CRCL calculation 34 ml/min; Estimated Glomerular Filt Rate 54; Glucose 113 mg/dL (75-110); Magnesium 2.1 mg/dL (1.6-2.3); Potassium 3.5 mmol/L (3.4-5.0); Sodium 133 mmol/L (137-145)
[2020-05-20 06:00] VITALS: BP 115/82; PULSE 100; RESP 20; TEMP 36.7; O2SAT 98
[2020-05-20] MEDS: MULTIVITAMINS THERAPEUTIC TAB (*BKC) 1 TABLET PO (09:20)
[2020-05-20] MEDS: SPIRONOLACTONE 25 MG TABLET PO (09:20)
[2020-05-20] MEDS: FLUTICASONE PROPIONATE 0.05% NA SPR 16 GM BTL (*BKC) 2 SPRAY NASAL (09:20)
[2020-05-20] MEDS: FINASTERIDE 5 MG TABLET PO (09:20)
[2020-05-20] MEDS: ASPIRIN 81 MG ENTERIC TABLET PO (09:21)
[2020-05-20] MEDS: BUMETANIDE 1 MG TABLET 2 MG PO (09:21)
--- NOTE | 2020-05-20 11:51 | PM.DS ---
DS: Admitting Diagnosis Admitting Diagnosis Admitting Diagnosis: Rhabdomyolysis DS: Discharge Diagnosis Discharge Diagnosis (1) Frequent falls: Code(s): R29.6 - Repeated falls Status: Acute Assessment and Plan: Patient admitted for rhabdomyolysis although CK running around 500 and does meet criteria for rhabdo. CC consulted as patient appears to not be able to take care of himself and he has noted that his house has been condemned. IV fluids given in the ED and have since been stopped. Pt/Ot ordered - tolerated session today, witnessed patient ambulate outside his hospital room with walker. Monitor CK while inpatient: improving 504 on 05/19/20 to 176 today. With patient eating and drinking, should continue to improve, especially as mobility improves. PO intake encouraged, ate breakfast per patient report. Care Coordination worked with patient and his son to find an agreeable facility for further rehab, care , and monitoring. (2) Weakness: Code(s): R53.1 - Weakness Status: Acute Assessment and Plan: Patient has been recently admitted and discharged with HH therapy but appears to have worsening weakness and continues to have frequent falls as noted above. patient admitted himself to me today, that when he falls at home as he did this time, he is too weak to turn himself over and push himself up, especially in the condition that his current home is in. Pt/Ot Care Coordination worked with patient and his son to find an agreeable facility for further rehab, care , and monitoring. Ambien will continue to be held given his age and possibly contributing to symptoms - called and informed his nurse Sierra at the [facility]. Melatonin for now Avoided ativan as this may contribute to symptoms as well. (3) H/O aortic valve replacement: Code(s): Z95.2 - Presence of prosthetic heart valve Status: Acute Assessment and Plan: Patient states he takes warfarin 3 mg every other day then 1.5 mg every other day, although ordered as only 1.5 mg TTS; will have nursing confirm. INR 3.6 Monitor INR Continue Warfarin (4) Altered mental status: Code(s): R41.82 - Altered mental status, unspecified Status: Acute Assessment and Plan: Patient appears to be A&O x 3 and answering question appropriately for me Penny held Ativan d/c (5) Chronic renal failure, stage 3b: Code(s): N18.32 - Chronic kidney disease, stage 3b Status: Acute Assessment and Plan: Appears to be at baseline Monitor BMP LFTs and labs improving to baseline levels. Na consistently slightly low 130-135 (6) CHF (congestive heart failure), NYHA class I: Code(s): I50.9 - Heart failure, unspecified Status: Acute Assessment and Plan: Patient is edematous. Given IV fluids in the ED; these have since been stoppend Continue with home Bumex and spironolactone. Resumed BB (coreg) at discharge as his BP had improved. HR 82-100, HR 115/82 - 123/77 (7) Hypertension: Qualifiers: Hypertension type: essential hypertension Qualified Code(s): I10 - Essential (primary) hypertension Code(s): I10 - Essential (primary) hypertension Status: Chronic Assessment and Plan: Continued with home diuretics given generalized 1+edema Resumed BB (coreg) at discharge as his BP had improved. HR 82-100, HR 115/82 - 123/77 (8) Hyperlipidemia: Qualifiers: Hyperlipidemia type: mixed hyperlipidemia Qualified Code(s): E78.2 - Mixed hyperlipidemia Code(s): E78.5 - Hyperlipidemia, unspecified Status: Chronic Assessment and Plan: Statin held at admission, given LFTs elevat
[2020-05-20 13:16] VITALS: BP 108/77; BP 120/86; BP 123/77; PULSE 82; PULSE 86; PULSE 92
== END 2020-05-20 14:25 ==
LOC: ANHED 11:25 → ANH2MED 13:47
PROVIDERS: Family Medicine; Nurse Practitioner; Physician Assistant; Admitting Provider Internal Medicine; Emergency Provider Emergency Medicine; PCP Family Medicine; Visit Provider Nurse Practitioner
DX: R53.1 Weakness (principal); R29.6 Repeated falls; R41.82 Altered mental status, unspecified; I13.0 Hypertensive heart and chronic kidney disease with heart failure and stage 1 through stage 4 chronic kidney disease, or unspecified chronic kidney disease; N18.32 Chronic kidney disease, stage 3b; E78.5 Hyperlipidemia, unspecified; N40.0 Benign prostatic hyperplasia without lower urinary tract symptoms; T79.6XXA Traumatic ischemia of muscle, initial encounter; L57.0 Actinic keratosis; R94.31 Abnormal electrocardiogram [ECG] [EKG]; I48.91 Unspecified atrial fibrillation; I25.10 Atherosclerotic heart disease of native coronary artery without angina pectoris; I50.9 Heart failure, unspecified; Z79.82 Long term (current) use of aspirin; Z79.899 Other long term (current) drug therapy; Z79.01 Long term (current) use of anticoagulants; Z95.810 Presence of automatic (implantable) cardiac defibrillator; Z95.1 Presence of aortocoronary bypass graft; Z95.2 Presence of prosthetic heart valve; Z86.73 Personal history of transient ischemic attack (TIA), and cerebral infarction without residual deficits; Z20.828 Contact with and (suspected) exposure to other viral communicable diseases
CPT/HCPCS: 36415; 36600; 70450; 71046; 80053; 81001; 82375; 82550; 82805; 83050; 83735; 85025; 85610; 85652; 85730; 86140; 87635; 93005; 96361; 96374; 97110; 97116; 97161; 97165; 97530; 99285; A9270; C9803; G0378; J2060; J7030; U0003